=== PATIENT | female | born 1960 | race Caucasian/White ===

== ENCOUNTER → 2024-01-24 15:41 | Outpatient (CLI) | payer OTHER, SELFPAY ==
--- NOTE | ~2024-01-24 | US_ITS ---
EXAMINATION: US pelvic complete w TV DATE: 01/24/2024 16:04 INDICATION: Pelvic and perineal pain. TECHNIQUE: Multiple transabdominal and transvaginal sonographic images of the pelvis were obtained. COMPARISON: None. FINDINGS: TRANSABDOMINAL ULTRASOUND: The uterus measures 5.1 x 3.3 x 3.5 cm. There is no free fluid in the pelvis. TRANSVAGINAL ULTRASOUND: The endometrial complex measures 3 mm in thickness. The ovaries are not visualized. IMPRESSION: 1. Normal uterus. Ovaries not visualized. Reviewed, dictated and finalized at location A. ALLATION AND SERVICE TECHNICIAN
== END ==
PROVIDERS: PCP Obstetrics & Gynecology; Visit Provider Obstetrics & Gynecology
DX: R10.2 Pelvic and perineal pain (principal)
CPT/HCPCS: 76830; 76856

== ENCOUNTER 2024-05-22 08:05 | Outpatient (CLI) | payer OTHER, SELFPAY ==
--- NOTE | ~2024-05-22 | CT_ITS ---
EXAMINATION: CT abdomen wo/w con DATE: 05/22/2024 08:44 INDICATION: Abnormal renal ultrasound TECHNIQUE: Computed tomography (CT) of the abdomen was performed without and with 100 mL Omnipaque-35 0 intravenous contrast. Automated exposure control and iterative reconstruction technique were employ ed. The dose-length product was 1291.16 mGy-cm. COMPARISON: None FINDINGS: Lung bases are clear. Heart size is normal. No pericardial or pleural effusion. Diffuse hepatic steat osis with focal sparing along the gallbladder fossa. Gallbladder, pancreas, bilateral adrenal glands and kidneys are normal. No renal masses identified. 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 No wall thickening or obstruction at the mid/portion of the bowels. Mild lo wer thoracic spondylosis. Schmorl's node along the superior endplate of L5. IMPRESSION: 1. Normal kidneys. No renal masses identified. Recommend correlation with reported prior ultrasound w hich has not been submitted for comparison. 2. Diffuse hepatic steatosis. 3. Status post splenectomy. Reviewed, dictated and finalized at location B. IMPRESSION: 1. Normal kidneys. No renal masses identified. Recommend correlation with repor fior prior ultrasound which has not been submitted for comparison. 2. Diffuse hepatic steatosis. 3. Status post splenectomy.
[2024-05-22 08:34] LABS: Estimated Glomerular Filt Rate > 60
== END 2024-05-22 08:06 ==
DX: R93.429 Abnormal radiologic findings on diagnostic imaging of unspecified kidney (principal); K76.0 Fatty (change of) liver, not elsewhere classified; Z90.81 Acquired absence of spleen
CPT/HCPCS: 74170; Q9967

== ENCOUNTER 2025-02-28 15:12 | Emergency (ER) | payer MEDICARE, SELFPAY ==
--- NOTE | ~2025-02-28 | XR_ITS ---
HISTORY: injury COMPARISON: None TECHNIQUE: 3 views of the right ankle were performed FINDINGS: No acute fracture or dislocation. No significant soft tissue swelling. The ankle mortise is preserved. Bone mineralization is age-appropriate. Calcaneal spur is present. IMPRESSION: Degenerative disease without acute fracture. Reviewed, dictated and finalized at location A.
--- NOTE | ~2025-02-28 | XR_ITS ---
HISTORY: injury COMPARISON: None TECHNIQUE: 3 views of the right foot were performed FINDINGS: No acute fracture or dislocation is appreciated. The base of the fifth metatarsal is intact. Large calcaneal spur is noted. No significant soft tissue swelling is present. IMPRESSION: Degenerative disease, without acute fracture. Reviewed, dictated and finalized at location A.
--- OUTSIDE RECORDS SUMMARY | 2025-02-28 15:15 | XMS_ITS ---
Author Organization Unknown Address [address] [place] [phone] Phone Care Team Providers Care Headstart Teacher Name Role Phone GONZALEZ SUZETTE Attending Unavailable RAMY Leon Primary Unavailable Immunization Immunization Date Status Additional Notes Code Code System pneumococcal polysaccharide PPV23 10/03/2015 Completed 33 CVX Influenza, split virus, quadrivalent, PF 10/03/2015 Completed 150 CVX Influenza, split virus, quadrivalent, PF 09/13/2018 Completed 150 CVX Influenza, split virus, quadrivalent, PF 08/28/2020 Completed 150 CVX Influenza, split virus, quadrivalent, PF 08/06/2021 Completed 150 CVX Influenza, split virus, quadrivalent, PF 09/13/2022 Completed 150 CVX Influenza, MDCK, trivalent, PF 09/25/2024 Completed 153 CVX Influenza, MDCK, quadrivalen t, PF 09/07/2017 Completed 171 CVX Influenza, MDCK, quadrivalen t, PF 08/29/2019 Completed 171 CVX Influenza, MDCK, quadrivalen t, PF 09/11/2023 Completed 171 CVX COVID-19, mRNA, LNP-S, PF, 1 00 mcg/0.5mL dose or 50 mcg/0.25mL dose 12/29/2020 Completed 207 CVX COVID-19, mRNA, LNP-S, PF, 1 00 mcg/0.5mL dose or 50 mcg/0.25mL dose 09/29/2021 Completed 207 CVX Pneumococcal conjugate PCV20 , polysaccharide [id number] conjugate, adjuvant, PF 09/13/2022 Completed 216 CVX COVID-19, mRNA, LNP-S, bivalent, PF, 30 mcg/0.3 mL dose 10/05/2022 Completed 300 CVX RSV, recombinant, protein subunit RSVpreF, adjuvant reconstituted, 0.5 mL, PF 09/11/2023 Completed 303 CV X Results MICROALBUMIN - Collect Date/ Time: 01/11/2024 07:54 [facility] ID: [id number] [address] [place], [place], [id number] LOINC: 50929-7 Test Value Unit Reference Range Code Code System Flag MICROALBUMIN 6.7 mg/L L=0.0 H=16.7 22104-8 LOINC UR CREATININE 132.20 mg/dL L=30.00 H=125 2161-8 LOINC H MA/CR 5.1 mg/gCR CBC W/ DIFF - Collect Date/T giselle: 01/11/2024 07:52 [facility] ID: [id number] [address] [place], [place], [id number] LOINC: 41900-8 Test Value Unit Reference Range Code Code System Flag WBC 5.8 10^3uL L=4.8 H=10.8 RBC 4.09 10^6uL L=4.20 H=5.40 L HEMOGLOBIN 13.6 g/dL L=12.0 H=16.0 718-7 LOINC HEMATOCRIT 40.4 VOL% L=37.0 H=47.0 4544-3 LOINC MCV 98.8 fL L=81.0 H=99.0 MCH 33.3 pg L=27.0 H=32.0 H MCHC 33.7 g/dL L=32.0 H=36.0 PLATELETS 307 10^3uL L=100 H=400 21062-6 LOINC RDW 13.4 % L=11.7 H=15.5 %GRAN L=40.0 H=70.0 39473-5 LOINC %LYMPH L=20.0 H=45.0 736-9 LOINC %MONO L=2.0 H=10.0 68152-2 LOINC %EOS L=0.0 H=6.0 713-8 LOINC %BASO L=0.0 H=3.0 706-2 LOINC #NEUT L=1.9 H=7.6 99700-7 LOINC #LYMPH L=0.9 H=4.9 48941-6 LOINC #MONO L=0.1 H=0.9 73531-8 LOINC #EOS L=0.0 H=0.6 712-0 LOINC #BASO L=0.00 H=0.10 62184-3 LOINC #IM GRANS L=0.0 H=7.0 14299-1 LOINC %IM GRANS L=0.0 H=5.0 98851-8 LOINC %NRB L=0.0 H=0.2 83205-0 LOINC #NRB L=0.000 H=0.012 87558-9 LOINC MANUAL DIFF SEE BELOW A SEG 30 % L=40 H=70 L BANDS 0 % L=0 H=6 LYMPH 57 % L=20 H=45 H MONO 4.0 % L=2.0 H=10.0 EOS 7 % L=0 H=6 713-8 LOINC H BASO 1 % L=0 H=3 IM GRANS 0 % L=0 H=5 METAS 0 % L=0 H=0 MYELOS 0 % L=0 H=0 PROMYELOS 0 % L=0 H=0 BLASTS 0 % L=0 H=0 14119-1 LOINC SIRENA LYMPHS 1.00 % L=0.00 H=5.00 SMUDGE CELLS 0 % L=0 H=0 NRBC 1.0 % L=0.0 H=0.0 H PLTS APPEAR NORMAL NEUT # 1.7 10^3uL L=1.9 H=7.6 L LYMPH # 3.4 10^3uL L=0.9 H=4.9 MONO # 0.2 10^3uL L=0.1 H=0.9 EOS # 0.4 10^3uL L=0.0 H=0.6 712-0 LOINC BASO # 0.1 10^3uL L=0.0 H=0.1 15957-4 LOINC RBC MORPH NORMAL COMPREHENSIVE METABOLIC PANE L - Collect Date/Time: 01/11/2024 07:52 [facility] ID: [id number] [address] [place], [place], [id number] LOINC: 35366-0 Test Value Unit Reference Range Code Code System Flag FASTING NO BUN 13 mg/dL L=7 H=20 3094-0 LOINC CREATININE 1.00 mg/dL L=0.52 H=1.04 2160-0 LOINC GLUCOSE 121 mg/dL L=74 H=106 2345-7 LOINC H SODIUM 141 mmol/L L=132 H=144 2951-2 LOINC POTASSIUM 4.3 mmol/L L=3.5 H=5.1 2823-3 LOINC CHLORIDE 107 mmol/L L=98 H=107 2075-0 LOINC CO2 25.0 mmol/L L=22.0 H=30.0 2028-9 LOINC ANION GAP 13 L=10 H=20 15142-9 LOINC OSMOLALITY 293 mOs/kG L=280 H=296 08668-0 LOINC BUN/CREAT 13.0 3097-3 LOINC CALCIUM 9.5 mg/dL L=8.3 H=10.5 35889-4 LOINC AST 31 U/L L=15 H=46 1920-8 LOINC ALT 32 U/L L=9 H=72 1742-6 LOINC ALKALINE PHOS 56 U/L L=38 H=126 6768-6 LOINC TOTAL BILI 0.5 mg/dL L=0.2 H=1.3 1975-2 LOINC ALBUMIN 4.4 G/dL L=3.5 H=5.0 1751-7 LOINC TOTAL PROTEIN 7.7 g/L L=6.3 H=8.2 2885-2 LOINC A/G RATIO 1.3 84225-3 LOINC AGE 63 03805-2 LOINC eGFR NON-AFR 59 ml/min eGFR AFR AMER 71 ml/min HEMOGLOBIN A1C WITH eAG - Co llect Date/Time: 01/11/2024 07:52 [facility] ID: [id number] [address] [place], [place], [id number] LOINC: 4548-4 Test Value Unit Reference Range Code Code System Flag HGBA1C 6.1 % 4548-4 LOINC eAG 128.4 mg/dL 4548-4 LOINC LIPID PANEL - Collect Date/T giselle: 01/11/2024 07:52 [facility] ID: [id number] [place], [id number] LOINC: 37885-5 Test Value Unit Reference Range Code Code System Flag FASTING NO CHOLESTEROL 212 mg/dL L=0 H=200 2092-3 LOINC H TRIGLYCERIDE 84 mg/dL L=0 H=150 2570-8 LOINC HDL 53 mg/dL L=40 H=60 2084-9 LOINC LDL 128 mg/dL 2088-11 LOINC TSH / REFLEX FT4 - Collect D ate/Time: 01/11/2024 07:52 [facility] ID: [id number] [address] [place], [place], [id number] LOINC: Test Value Unit Reference Range Code Code System Flag TSH 0.850 uIU/L L=0.470 H=4.680 29985-9 LOINC Social History Type Status Start Date End Date Code Code Syst em Smoking History Former smoker 2200126 SNOMED CT Sex Female Medications Medication Start Date End Date Route Frequency Dose Code Code System Medication Instructions Home Meds Docusate 100MG Oral Capsule, Liquid Filled 04/11/2023 Unknown ORAL NEEDED 100 MILLIGRAMS 9860104 RxNorm TAKE 100 MILLIGRAMS ORAL NEEDED Metoprolol Succinate 50MG Oral Tablet, Extended Release 04/11/2023 Unknown ORAL ONCE A DAY 50 MILLIGRAMS 006716 RxNorm TAKE 50 MILLIGRAMS ORAL ONCE A DAY Omeprazole 20 MG Oral Tablet, Delayed Release 04/11/2023 Unknown ORAL ONCE A DAY 20 MG RxNorm TAKE 20 MG ORAL ONCE A DAY Opzelura 1.5% Topical application Cream 04/11/2023 Unknown TOPICAL APPLICATI ON ONCE A DAY 1 unit(s) 6928938 RxNorm 1 EACH TOPICAL APPLICATION ONCE A DAY metFORMIN HCl 500MG Oral Tablet 04/11/2023 Unknown ORAL ONCE A DAY 500 MILLIGRAMS 234045 RxNorm TAKE 500 MILLIGRAMS ORAL ONCE A DAY Hospital Discharge Instructions Should you have any questions prior to discharge, please contact a member of your healthcare team. If you have left the hospital and have any questions, please contact your primary care physician. Reason For Referral No Data Found Allergies and Adverse Reactions Allergy Substance Reaction Severity Start Date Concern Status Co de Code System DOXYCYCLINE Active 3640 RxNorm NABUMETONE Active 14307 RxNorm SUDAFED CONGESTION Active 242447 RxNor m Plan of Treatment Digital Senthil Screen Bilateral (09408) Digital Senthil Screen Bilateral (31432) Colonoscopy 04/11/2023 Kidney & Bladder (41240) 04/08/2024 Digital Senthil Screen Bilateral (00118) Digital Senthil Screen Bilateral (27594) Encounters Encounter Diagnosis Start Date Code Code Sys tem Essential (primary) hypertension 01/11/2024 SNOMED-CT Personal Care Team Section Performer Name Performer Role Active Date Inactive Da te Brian Townsend PCP - Primary care physician 2023-04-04 2023-04-11 ZELDA MCCANN PCP - Primary care physician 2023-03-25 8 2024-04-08 Brian Townsend PCP - Primary care physician 2024-04-08
--- OUTSIDE RECORDS SUMMARY | 2025-02-28 15:15 | XMS_ITS | Clinical Summary ---
Author Organization [facility] Address [address] [place] [address] Care Team Providers Care Scribing Machine Operator Name Role Phone Unavailable Primary Care Provider Unavailabl e Social History Tobacco Use Types Packs/Day Years Used Date Smoking Tobacco: Never Assessed Comments Unknown Sex and Gender Information Value Date Recorded Sex Assigned at Not on file Legal Sex Female 9:27 AM CDT Gender Identity Not on file Sexual Orientation Not on file Last Filed Vital Signs Vital Sign Reading Time Taken Comments Blood Pressure 166/90 06/29/2024 9:45 AM CDT Pulse 87 06/29/2024 9:45 AM CDT Temperature - - Respiratory Rate - - Oxygen Saturation - - Inhaled Oxygen Concentration - - Weight 100.3 kg (221 lb 3.2 oz) 06/29/2024 9:45 AM CDT Height 162.6 cm (5' 4 ) 06/29/2024 9:45 AM CDT Body Mass Index 37.97 06/29/2024 9:45 AM CDT Plan of Treatment Health Maintenance Due Date Last Done Comments Colorectal Cancer Screening Colonoscopy (10 Years) 1959 Hepatitis C 1977 DTaP, Tdap and Td Vaccines ( 1 - Tdap) 1978 Mammogram Screening 1999 Zoster Vaccines (1 of 2) 2009 COVID-19 Vaccine ( - 2023-2 5 season) 2024 10/05/2022, 09/29/2021, 12/29/2020 Dexa Scan (General) 2024 Pneumococcal Vaccine: 65+ Years Completed 09/13/2022, 10/03/2015 Pneumococcal Vaccine: Pediatrics (0 to 5 Years) and At-Risk Patients (6 to 64 Years) Aged Out 09/13/2022, 10/03/2015 No longer eligible based on patient's age to complete this topic RSV Immunization or 60+ Years Completed 09/11/2023 Meningococcal B Vaccine Aged Out No l onger eligible based on patient's age to complete this topic Meningococcal Vaccine Aged Out No carlos alberto dionicio eligible based on patient's age to complete this topic RSV Immunizations Under 20 Months Aged Out No longer eligible b ased on patient's age to complete this topic Insurance [employer] [facility]
--- OUTSIDE RECORDS SUMMARY | 2025-02-28 15:15 | XMS_ITS ---
Author Organization Unknown Address [address] [place] [phone] Phone Care Team Providers Care Quality Control Assessor Name Role Phone CAROLE DILLARD Attending Unavailable LALITA GREWAL Primary Unavailable Immunization Immunization Date Status Additional [...] 207 CVX Pneumococcal conjugate PCV20 , polysaccharide [id number] conjugate, adjuvant, PF 09/13/2022 Completed 216 CVX COVID-19, mRNA, LNP-S, bivalent, PF, 30 mcg/0.3 mL dose 10/05/2022 Completed 300 CVX RSV, recombinant, protein subunit RSVpreF, adjuvant reconstituted, 0.5 mL, PF 09/11/2023 Completed 303 CV X Results CBC W/ DIFF - Collect Date/T giselle: 08/03/2024 08:17 [facility] ID: [id number] [address] [place], [place], [phone] LOINC: 20848-9 Test Value Unit Reference Range Code Code System Flag WBC 6.5 10^3uL L=4.8 H=10.8 RBC 3.93 10^6uL L=4.20 H=5.40 L HEMOGLOBIN 13.0 g/dL L=12.0 H=16.0 718-7 LOINC HEMATOCRIT 39.4 VOL% L=37.0 H=47.0 4544-3 LOINC MCV 100.3 fL L=81.0 H=99.0 H MCH 33.1 pg L=27.0 H=32.0 H MCHC 33.0 g/dL L=32.0 H=36.0 PLATELETS 345 10^3uL L=100 H=400 94549-4 LOINC RDW 14.4 % L=11.7 H=15.5 %GRAN 35.0 % L=40.0 H=70.0 33443-1 LOINC L %LYMPH 45.4 % L=20.0 H=45.0 736-9 LOINC H %MONO 12.7 % L=2.0 H=10.0 81690-9 LOINC H %EOS 5.1 % L=0.0 H=6.0 713-8 LOINC %BASO 1.5 % L=0.0 H=3.0 706-2 LOINC #NEUT 2.3 10^3uL L=1.9 H=7.6 59237-1 LOINC #LYMPH 2.9 10^3uL L=0.9 H=4.9 58584-5 LOINC #MONO 0.8 10^3uL L=0.1 H=0.9 90257-8 LOINC #EOS 0.3 10^3uL L=0.0 H=0.6 712-0 LOINC #BASO 0.10 10^3uL L=0.00 H=0.10 95466-9 LOINC #IM GRANS 0.0 10^3uL L=0.0 H=7.0 68310-6 LOINC %IM GRANS 0.3 % L=0.0 H=5.0 25687-4 LOINC %NRB 0.6 L=0.0 H=0.2 59764-9 LOINC H #NRB 0.040 L=0.000 H=0.012 87568-4 LOINC H MANUAL DIFF NOT INDICATED RBC MORPH NOT INDICATED COMPREHENSIVE METABOLIC PANE L - Collect Date/Time: 08/03/2024 08:17 [facility] ID: [id number] [address] [place], [place], [id number] LOINC: 01116-1 Test Value Unit Reference Range Code Code System Flag FASTING YES BUN 13 mg/dL L=7 H=20 3094-0 LOINC CREATININE 0.90 mg/dL L=0.52 H=1.04 2160-0 LOINC GLUCOSE 135 mg/dL L=74 H=106 2345-7 LOINC H SODIUM 138 mmol/L L=132 H=144 2951-2 LOINC POTASSIUM 4.3 mmol/L L=3.5 H=5.1 2823-3 LOINC CHLORIDE 101 mmol/L L=98 H=107 2075-0 LOINC CO2 27.0 mmol/L L=22.0 H=30.0 2028-9 LOINC ANION GAP 14 L=10 H=20 15382-0 LOINC OSMOLALITY 288 mOs/kG L=280 H=296 53312-8 LOINC BUN/CREAT 14.4 3097-3 LOINC CALCIUM 9.3 mg/dL L=8.3 H=10.5 93759-9 LOINC AST 30 U/L L=15 H=46 1920-8 LOINC ALT 35 U/L L=9 H=72 1742-6 LOINC ALKALINE PHOS 66 U/L L=38 H=126 6768-6 LOINC TOTAL BILI 0.7 mg/dL L=0.2 H=1.3 1975-2 LOINC ALBUMIN 4.2 G/dL L=3.5 H=5.0 1751-7 LOINC TOTAL PROTEIN 7.3 g/L L=6.3 H=8.2 2885-2 LOINC A/G RATIO 1.4 38645-1 LOINC AGE 63 50794-0 LOINC eGFR NON-AFR 67 ml/min eGFR AFR AMER 81 ml/min TSH / REFLEX FT4 - Collect D ate/Time: 08/03/2024 08:17 [facility] ID: [id number] [address] [place] [address], [id number] LOINC: Test Value Unit Reference Range Code Code System Flag TSH 1.290 uIU/L L=0.470 H=4.680 68634-5 LOINC HEMOGLOBIN A1C WITH eAG - Co llect Date/Time: 08/03/2024 08:17 [facility] ID: [id number] [address] [place] [address], [id number] LOINC: 4548-4 Test Value Unit Reference Range Code Code System Flag HGBA1C 6.3 % 4548-4 LOINC eAG 134.1 mg/dL 4548-4 LOINC LIPID PANEL - Collect Date/T giselle: 08/03/2024 08:17 [facility] ID: [id number] [address] [place] [address], [id number] LOINC: 94067-1 Test Value Unit Reference Range Code Code System Flag FASTING YES CHOLESTEROL 168 mg/dL L=0 H=200 2092-3 LOINC TRIGLYCERIDE 77 mg/dL L=0 H=150 2570-8 LOINC HDL 60 mg/dL L=40 H=60 2084-9 LOINC LDL 88 mg/dL 2088- LOINC Social History Type Status Start Date End Date Code Code Syst em Smoking History Former smoker 1624509 SNOMED CT Sex Female Medications Medication Start Date End Date Route Frequency Dose Code Code System Medication Instructions Home Meds Docusate 100MG Oral Capsule, Liquid Filled 04/11/2023 Unknown ORAL NEEDED 100 MILLIGRAMS 9029526 RxNorm TAKE 100 MILLIGRAMS ORAL NEEDED Metoprolol Succinate 50MG Oral Tablet, Extended Release 04/11/2023 Unknown ORAL ONCE A DAY 50 MILLIGRAMS 822658 RxNorm TAKE 50 MILLIGRAMS ORAL ONCE A DAY Omeprazole 20 MG Oral Tablet, Delayed Release 04/11/2023 Unknown ORAL ONCE A DAY 20 MG RxNorm TAKE 20 MG ORAL ONCE A DAY Opzelura 1.5% Topical application Cream 04/11/2023 Unknown TOPICAL APPLICATI ON ONCE A DAY 1 unit(s) 9110012 RxNorm 1 EACH TOPICAL APPLICATION ONCE A DAY metFORMIN HCl 500MG Oral Tablet 04/11/2023 Unknown ORAL ONCE A DAY 500 MILLIGRAMS 547647 RxNorm TAKE 500 MILLIGRAMS ORAL ONCE A [...] System DOXYCYCLINE Active 3640 RxNorm NABUMETONE Active 12786 RxNorm SUDAFED CONGESTION Active RxNor m Plan of Treatment Digital Senthil Screen Bilateral (32821) Digital Senthil Screen Bilateral (50517) Colonoscopy 04/11/2023 Kidney & Bladder (30088) 04/08/2024 Digital Senthil Screen Bilateral (70240) Digital Senthil Screen Bilateral (95361) Personal Care Team Section Performer Name Performer Role Active Date Inactive Da cari Townsend PCP - Primary care physician 2023-04-04 2023-04-11 ZELDA MCCANN PCP - Primary care physician 2023-03-25 8 2024-04-08 Brian Townsend PCP - Primary care physician 2024-04-08
--- OUTSIDE RECORDS SUMMARY | 2025-02-28 15:16 | XMS_ITS ---
Author Organization Unknown Address [address] [place] [phone] Phone Care Team Providers Care Pump Room Operator Name Role Phone CAROLE DILLARD Attending Unavailable [...] 207 CVX Pneumococcal conjugate PCV20 , polysaccharide [id number] conjugate, adjuvant, PF 09/13/2022 Completed 216 CVX COVID-19, mRNA, LNP-S, bivalent, PF, 30 mcg/0.3 mL dose 10/05/2022 Completed 300 CVX RSV, recombinant, protein subunit RSVpreF, adjuvant reconstituted, 0.5 mL, PF 09/11/2023 Completed 303 CV X Results URINALYSIS w/Microscopy/C&S if indicated - Collect Date/Time: 10/07/2024 15:13 [facility] ID: [id number] [place], [place], [id number] LOINC: 14183-4 Test Value Unit Reference Range Code Code System Flag UR SOURCE CLEAN CATCH 15539-8 LOINC COLOR YELLOW YELLOW 5778-6 LOINC CLARITY CLEAR CLEAR 22300-3 LOINC SPEC GRAVITY 1.010 1.000-1.030 5811-5 LOINC PH 6.5 5.0 - 6.5 5803-2 LOINC LEUK EST NEGATIVE NEGATIVE 5799-2 LOINC NITRATE NEGATIVE NEGATIVE PROTEIN NEGATIVE NEGATIVE 5804-0 LOINC GLUCOSE 3+ NEGATIVE 23454-0 LOINC KETONES NEGATIVE NEGATIVE 45249-0 LOINC UROBILINOGEN 1.0 NEGATIVE 5818-0 LOINC BILIRUBIN NEGATIVE NEGATIVE 42607-9 LOINC BLOOD NEGATIVE NEGATIVE 20111-4 LOINC WBC 2-5 0 - 2 89737-3 LOINC RBC 0-2 0 - 2 28627-7 LOINC EPITHELIAL FEW RARE-FEW 92355-3 LOINC BACTERIA FEW NONE SEEN 55878-5 LOINC MUCUS FEW NONE SEEN 8247-9 LOINC YEAST NOT PRESENT NOT PRESENT 73175-0 LOINC CASTS NONE SEEN 80918-6 LOINC CRYSTALS NONE SEEN 93049-4 LOINC CULTURE? NO 8251-1 LOINC DIAGNOSIS N/A URINE PROTEIN W/CREATININE R ATIO - Collect Date/Time: 10/07/2024 15:13 [facility] ID: [id number] [place], [place], [id number] LOINC: 2888-6 Test Value Unit Reference Range Code Code System Flag UR PROTEIN < 5.0 mg/dL L=0.0 H=12.0 2888-6 LOINC UR CREATININE 104.20 mg/dL L=30.00 H=125 2161-8 LOINC UR PROTEIN/CREAT RAT L=0.0 H=200 2828-2 LOINC RENAL FUNCTION PANEL - [facility] ct Date/Time: 10/07/2024 15:13 [facility] ID: [id number] [address] [place], [place], [id number] LOINC: 66672-9 Test Value Unit Reference Range Code Code System Flag FASTING? NO BUN 16 mg/dL L=7 H=20 3094-0 LOINC CREATININE 1.00 mg/dL L=0.52 H=1.04 2160-0 LOINC GLUCOSE 120 mg/dL L=74 H=106 2345-7 LOINC H CALCIUM 9.9 mg/dL L=8.3 H=10.5 94151-8 LOINC SODIUM 141 mmol/L L=132 H=144 2951-2 LOINC POTASSIUM 4.3 mmol/L L=3.5 H=5.1 2823-3 LOINC CHLORIDE 101 mmol/L L=98 H=107 2075-0 LOINC CO2 26.0 mmol/L L=22.0 H=30.0 2028-9 LOINC ANION GAP 18 L=10 H=20 69515-8 LOINC BUN/CREAT 16.0 3097-3 LOINC PHOSPHORUS 4.0 mg/dL L=2.5 H=4.9 2777-1 LOINC ALBUMIN 4.6 G/dL L=3.5 H=5.0 1751-7 LOINC AGE 63 67470-2 LOINC eGFR NON-AFR 59 ml/min eGFR AFR AMER 71 ml/min Social History Type Status Start Date End Date Code Code Syst em Smoking History Former smoker 0303171 SNOMED CT Sex Female Medications Medication Start Date End Date Route Frequency Dose Code Code System Medication Instructions Home Meds Docusate 100MG Oral Capsule, Liquid Filled 04/11/2023 Unknown ORAL NEEDED 100 MILLIGRAMS 1681938 RxNorm TAKE 100 MILLIGRAMS ORAL NEEDED Metoprolol Succinate 50MG Oral Tablet, Extended Release 04/11/2023 Unknown ORAL ONCE A DAY 50 MILLIGRAMS 803190 RxNorm TAKE 50 MILLIGRAMS ORAL ONCE A DAY Omeprazole 20 MG Oral Tablet, Delayed Release 04/11/2023 Unknown ORAL ONCE A DAY 20 MG RxNorm TAKE 20 MG ORAL ONCE A DAY Opzelura 1.5% Topical application Cream 04/11/2023 Unknown TOPICAL APPLICATI ON ONCE A DAY 1 unit(s) 4802813 RxNorm 1 EACH TOPICAL APPLICATION ONCE A DAY metFORMIN HCl 500MG Oral Tablet 04/11/2023 Unknown ORAL ONCE A DAY 500 MILLIGRAMS 482276 RxNorm TAKE 500 MILLIGRAMS ORAL ONCE A [...] System DOXYCYCLINE Active 3640 RxNorm NABUMETONE Active 31776 RxNorm SUDAFED CONGESTION Active 608049 RxNor m Plan of Treatment Digital Senthil Screen Bilateral (36669) Digital Senthil Screen Bilateral (95237) Colonoscopy 04/11/2023 Kidney & Bladder (32332) 04/08/2024 Digital Senthil Screen Bilateral (81172) Digital Senthil Screen Bilateral (14713) Personal Care Team Section Performer Name Performer Role Active Date Inactive Da te Brian Townsend PCP - Primary care physician 2023-04-04 2023-04-11 ZELDA MCCANN PCP - Primary care physician 2023-03-25 8 2024-04-08 Brian Townsend PCP - Primary care physician 2024-04-08
--- OUTSIDE RECORDS SUMMARY | 2025-02-28 15:16 | XMS_ITS ---
Author Organization Unknown Address [address] [place] [address] [phone] Phone Care Team Providers Care Supervisor Component Assembler Name Role Phone GONZALEZ SUZETTE Attending Unavailable [...] 207 CVX Pneumococcal conjugate PCV20 , polysaccharide [id number] conjugate, adjuvant, PF 09/13/2022 Completed 216 CVX COVID-19, mRNA, LNP-S, bivalent, PF, 30 mcg/0.3 mL dose 10/05/2022 Completed 300 CVX RSV, recombinant, protein subunit RSVpreF, adjuvant reconstituted, 0.5 mL, PF 09/11/2023 Completed 303 CV X Results DIG 3D SENTHIL SCREENING BILATER AL - Completed: 03/20/2024 13:36 LOINC: See Scanned Image Attachment for Report Dictated By: Tabby Initials: Trans Date: 03/23/24 10:39 <<REPDIST>> Social History Type Status Start Date End Date Code Code Syst em Smoking History Former smoker 9026995 SNOMED CT Sex Female Medications Medication Start Date End Date Route Frequency Dose Code Code System Medication Instructions Home Meds Docusate 100MG Oral Capsule, Liquid Filled 04/11/2023 Unknown ORAL NEEDED 100 MILLIGRAMS 4851500 RxNorm TAKE 100 MILLIGRAMS ORAL NEEDED Metoprolol Succinate 50MG Oral Tablet, Extended Release 04/11/2023 Unknown ORAL ONCE A DAY 50 MILLIGRAMS 793971 RxNorm TAKE 50 MILLIGRAMS ORAL ONCE A DAY Omeprazole 20 MG Oral Tablet, Delayed Release 04/11/2023 Unknown ORAL ONCE A DAY 20 MG RxNorm TAKE 20 MG ORAL ONCE A DAY Opzelura 1.5% Topical application Cream 04/11/2023 Unknown TOPICAL APPLICATI ON ONCE A DAY 1 unit(s) 5079209 RxNorm 1 EACH TOPICAL APPLICATION ONCE A DAY metFORMIN HCl 500MG Oral Tablet 04/11/2023 Unknown ORAL ONCE A DAY 500 MILLIGRAMS 215938 RxNorm TAKE 500 MILLIGRAMS ORAL ONCE A [...] System DOXYCYCLINE Active 3640 RxNorm NABUMETONE Active 42833 RxNorm SUDAFED CONGESTION Active RxNor m Plan of Treatment Digital Senthil Screen Bilateral (43226) Digital Senthil Screen Bilateral (48392) Colonoscopy 04/11/2023 Kidney & Bladder (68332) 04/08/2024 Digital Senthil Screen Bilateral (17203) Digital Senthil Screen Bilateral (23231) Encounters Encounter Diagnosis Start Date Code Code Sys tem Screening mammography 03/20/2024 [id number] SNOMED -CT Personal Care Team Section Performer Name Performer Role Active Date Inactive Da te Brian Townsend PCP - Primary care physician 2023-04-04 2023-04-11 ZELDA MCCANN PCP - Primary care physician 2023-03-25 8 2024-04-08 Brian Townsend PCP - Primary care physician 2024-04-08 Imaging Narrative Notes [facility] 03/23/2024 10:[address] [address] RADIOLOGY REPORT Patient Number: [id number] Patient Name: MARCIO URBAN Type: O/P MR Number: [id number] : 1960 Age: 63 Sex: F Room #: Admit Date: 03/20/24 Discharge Date 03/20/24 Ordering Physician: CARLOS Romeo Physician: CELSO Dimas Physician: X-Ray Number : [id number] DIG 3D SENTHIL SCREENING BILATERA 34933 COMPLETE:03/20/24 13:36 KSE 77977 (REASONS-DIG 3D SENTHIL SCREENING BILATERAL: SCREENING See Scanned Image Attachment for Report Dictated By: Trans Initials: Trans Date: 03/23/24 10:39 <<REPDIST>>
--- OUTSIDE RECORDS SUMMARY | 2025-02-28 15:16 | XMS_ITS ---
Author Organization Unknown Address [address] [place] [address] [phone] Phone Care Team Providers Care Weed Cooking Operator Name Role Phone CAROLE DILLARD Attending [...] 207 CVX Pneumococcal conjugate PCV20 , polysaccharide [id number] conjugate, adjuvant, PF 09/13/2022 Completed 216 CVX COVID-19, mRNA, LNP-S, bivalent, PF, 30 mcg/0.3 mL dose 10/05/2022 Completed 300 CVX RSV, recombinant, protein subunit RSVpreF, adjuvant reconstituted, 0.5 mL, PF 09/11/2023 Completed 303 CV X Results CBC W/ DIFF - Collect Date/T giselle: 02/08/2025 08:59 [facility] ID: [id number] [address] [place], [place], [phone] LOINC: 07680-2 Test Value Unit Reference Range Code Code System Flag WBC 5.9 10^3uL L=4.8 H=10.8 RBC 4.00 10^6uL L=4.20 H=5.40 L HEMOGLOBIN 13.2 g/dL L=12.0 H=16.0 718-7 LOINC HEMATOCRIT 40.5 VOL% L=37.0 H=47.0 4544-3 LOINC MCV 101.3 fL L=81.0 H=99.0 H MCH 33.0 pg L=27.0 H=32.0 H MCHC 32.6 g/dL L=32.0 H=36.0 PLATELETS 361 10^3uL L=100 H=400 69786-4 LOINC RDW 14.3 % L=11.7 H=15.5 %GRAN 35.5 % L=40.0 H=70.0 17394-6 LOINC L %LYMPH 43.2 % L=20.0 H=45.0 736-9 LOINC %MONO 11.5 % L=2.0 H=10.0 50375-9 LOINC H %EOS 7.9 % L=0.0 H=6.0 713-8 LOINC H %BASO 1.7 % L=0.0 H=3.0 706-2 LOINC #NEUT 2.1 10^3uL L=1.9 H=7.6 58877-9 LOINC #LYMPH 2.6 10^3uL L=0.9 H=4.9 70744-8 LOINC #MONO 0.7 10^3uL L=0.1 H=0.9 32115-0 LOINC #EOS 0.5 10^3uL L=0.0 H=0.6 712-0 LOINC #BASO 0.10 10^3uL L=0.00 H=0.10 21081-0 LOINC #IM GRANS 0.0 10^3uL L=0.0 H=7.0 59433-7 LOINC %IM GRANS 0.2 % L=0.0 H=5.0 94218-4 LOINC %NRB 0.3 L=0.0 H=0.2 95058-0 LOINC H #NRB 0.020 L=0.000 H=0.012 51513-4 LOINC H MANUAL DIFF NOT INDICATED RBC MORPH NOT INDICATED LIPID PANEL - Collect Date/T giselle: 02/08/2025 08:59 [facility] ID: [id number] [address] [place] [address], [phone] LOINC: 64564-5 Test Value Unit Reference Range Code Code System Flag FASTING YES CHOLESTEROL 147 mg/dL L=0 H=200 3-3 LOINC TRIGLYCERIDE 83 mg/dL L=0 H=150 1-8 LOINC HDL 54 mg/dL L=40 H=60 2084-9 LOINC LDL 81 mg/dL 2088- LOINC COMPREHENSIVE METABOLIC PANE L - Collect Date/Time: 02/08/2025 08:59 [facility] ID: [id number] [place] [address], [phone] LOINC: 97485-8 Test Value Unit Reference Range Code Code System Flag FASTING YES BUN 11 mg/dL L=7 H=20 3094-0 LOINC CREATININE 0.80 mg/dL L=0.52 H=1.04 2160-0 LOINC GLUCOSE 103 mg/dL L=74 H=106 2345-7 LOINC SODIUM 142 mmol/L L=132 H=144 2951-2 LOINC POTASSIUM 4.4 mmol/L L=3.5 H=5.1 2823-3 LOINC CHLORIDE 107 mmol/L L=98 H=107 2075-0 LOINC CO2 25.0 mmol/L L=22.0 H=30.0 8-9 LOINC ANION GAP 14 L=10 H=20 51650-7 LOINC OSMOLALITY 294 mOs/kG L=280 H=296 06509-8 LOINC BUN/CREAT 13.8 3097-3 LOINC CALCIUM 9.3 mg/dL L=8.3 H=10.5 55944-8 LOINC AST 26 U/L L=15 H=46 1920-8 LOINC ALT 28 U/L L=9 H=72 1742-6 LOINC ALKALINE PHOS 62 U/L L=38 H=126 6768-6 LOINC TOTAL BILI 0.4 mg/dL L=0.2 H=1.3 1975-2 LOINC ALBUMIN 4.2 G/dL L=3.5 H=5.0 1751-7 LOINC TOTAL PROTEIN 7.3 g/L L=6.3 H=8.2 2885-2 LOINC A/G RATIO 1.4 26388-9 LOINC AGE 64 86590-2 LOINC eGFR NON-AFR 77 ml/min eGFR AFR AMER 93 ml/min TSH / REFLEX FT4 - Collect D ate/Time: 02/08/2025 08:59 [facility] ID: [id number] [address] [place] [address], [phone] LOINC: Test Value Unit Reference Range Code Code System Flag TSH 0.725 uIU/L L=0.470 H=4.680 21918-6 LOINC MICROALBUMIN - Collect Date/ Time: 02/08/2025 08:59 [facility] ID: [id number] [address] [place] [address], [phone] LOINC: 96237-4 Test Value Unit Reference Range Code Code System Flag MICROALBUMIN 12.2 mg/L L=0.0 H=16.7 81690-0 LOINC UR CREATININE 272.10 mg/dL L=30.00 H=125 2161-8 LOINC H MA/CR 4.5 mg/gCR HEMOGLOBIN A1C WITH eAG - Co llect Date/Time: 02/08/2025 08:59 [facility] ID: [id number] [address] [place], [place], [phone] LOINC: 4548-4 Test Value Unit Reference Range Code Code System Flag HGBA1C 5.6 % 4548-4 LOINC eAG 114.0 mg/dL 4548-4 LOINC Social History Type Status Start Date End Date Code Code Syst em Smoking History Former smoker [id number] SNOMED CT Sex Female Medications Medication Start Date End Date Route Frequency Dose Code Code System Medication Instructions Home Meds Docusate 100MG Oral Capsule, Liquid Filled 04/11/2023 Unknown ORAL NEEDED 100 MILLIGRAMS 6902692 RxNorm TAKE 100 MILLIGRAMS ORAL NEEDED Metoprolol Succinate 50MG Oral Tablet, Extended Release 04/11/2023 Unknown ORAL ONCE A DAY 50 MILLIGRAMS 862083 RxNorm TAKE 50 MILLIGRAMS ORAL ONCE A DAY Omeprazole 20 MG Oral Tablet, Delayed Release 04/11/2023 Unknown ORAL ONCE A DAY 20 MG RxNorm TAKE 20 MG ORAL ONCE A DAY Opzelura 1.5% Topical application Cream 04/11/2023 Unknown TOPICAL APPLICATI ON ONCE A DAY 1 unit(s) 7762780 RxNorm 1 EACH TOPICAL APPLICATION ONCE A DAY metFORMIN HCl 500MG Oral Tablet 04/11/2023 Unknown ORAL ONCE A DAY 500 MILLIGRAMS 478662 RxNorm TAKE 500 MILLIGRAMS ORAL ONCE A [...] System DOXYCYCLINE Active 3640 RxNorm NABUMETONE Active 07615 RxNorm SUDAFED CONGESTION Active 728057 RxNor m Plan of Treatment Digital Senthil Screen Bilateral (70888) Digital Senthil Screen Bilateral (06993) Colonoscopy 04/11/2023 US Kidney & Bladder (96369) 04/08/2024 Digital Senthil Screen Bilateral (37371) Digital Senthil Screen Bilateral (94397) Encounters Encounter Diagnosis Start Date Code Code Sys tem Type 2 diabetes mellitus without complications 025 SNOMED-CT Personal Care Team Section Performer Name Performer Role Active Date Inactive Da te Brian Townsend PCP - Primary care physician 2023-04-04 2023-04-11 ZELDA MCCANN PCP - Primary care physician 2023-03-25 8 2024-04-08 Brian Townsend PCP - Primary care physician 2024-04-08
--- OUTSIDE RECORDS SUMMARY | 2025-02-28 15:16 | XMS_ITS ---
Author Organization Unknown Address [address] [place] [address] [phone] Phone Care Team Providers Care Senior Statistician Name Role Phone CAROLE DILLARD Attending Unavailable [...] 207 CVX Pneumococcal conjugate PCV20 , polysaccharide [id number] conjugate, adjuvant, PF 09/13/2022 Completed 216 CVX COVID-19, mRNA, LNP-S, bivalent, PF, 30 mcg/0.3 mL dose 10/05/2022 Completed 300 CVX RSV, recombinant, protein subunit RSVpreF, adjuvant reconstituted, 0.5 mL, PF 09/11/2023 Completed 303 CV X Results US KIDNEY AND BLADDER - Comp leted: 04/08/2024 14:44 LOINC: EXAM DESCRIPTION: US KIDNEY AND BLADDER REASON FOR STUDY: {REASON-US KID/BLADDER DECREASED GFR TECHNIQUE: Ultrasound of the kidneys and urinary bladder was performed with grayscale imaging. COMPARISON: None FINDINGS: RIGHT KIDNEY: The right kidney measures 10.7 x 4.7 x 4.9 cm. There is no hydronephrosis. No discrete mass. Corticomedullary differentiation appears maintained. LEFT KIDNEY: The left kidney measures 11.3 x 4.8 x 5.3 cm. There is normal cortical thickness and echogenicity. Prominent column of Brien versus duplication of the collecting system. There may be mild fullness of the collecting system in the lower pole. URINARY BLADDER: The urinary bladder is normally distended. Both ureteral jets are demonstrated. Bladder volume is 229 mL. OTHER: No other additional findings. IMPRESSION: ? ? Prominent column of Brien versus duplication of the collecting system in the left kidney. Mild fullness of lower pole calices within the left kidney suggested. ? ? No discrete renal mass. No appreciable nephrolithiasis. ? ? Urinary bladder unremarkable THIS IS AN ELECTRONICALLY VERIFIED FINAL REPORT 04/10/2024 11:19 AM - Electronically signed by Kalina Jean Baptiste M.D. TW: TW Report ID: [id number] Reading Location: [place] [address] Social History Type Status Start Date End Date Code Code Syst em Smoking History Former smoker [id number] [facility] Sex Female Medications Medication Start Date End Date Route Frequency Dose Code Code System Medication Instructions Home Meds Docusate 100MG Oral Capsule, Liquid Filled 04/11/2023 Unknown ORAL NEEDED 100 MILLIGRAMS 0542488 RxNorm TAKE 100 MILLIGRAMS ORAL NEEDED Metoprolol Succinate 50MG Oral Tablet, Extended Release 04/11/2023 Unknown ORAL ONCE A DAY 50 MILLIGRAMS 786782 RxNorm TAKE 50 MILLIGRAMS ORAL ONCE A DAY Omeprazole 20 MG Oral Tablet, Delayed Release 04/11/2023 Unknown ORAL ONCE A DAY 20 MG RxNorm TAKE 20 MG ORAL ONCE A DAY Opzelura 1.5% Topical application Cream 04/11/2023 Unknown TOPICAL APPLICATI ON ONCE A DAY 1 unit(s) 8327856 RxNorm 1 EACH TOPICAL APPLICATION ONCE A DAY metFORMIN HCl 500MG Oral Tablet 04/11/2023 Unknown ORAL ONCE A DAY 500 MILLIGRAMS 027924 RxNorm TAKE 500 MILLIGRAMS ORAL ONCE A [...] System DOXYCYCLINE Active 3640 RxNorm NABUMETONE Active 90260 RxNorm SUDAFED CONGESTION Active 421393 RxNor m Plan of Treatment Digital Senthil Screen Bilateral (05116) Digital Senthil Screen Bilateral (82036) Colonoscopy 04/11/2023 US Kidney & Bladder (05436) 04/08/2024 Digital Senthil Screen Bilateral (55348) Digital Senthil Screen Bilateral (09775) Encounters Encounter Diagnosis Start Date Code Code Sys tem Renal function tests abnormal 04/08/2024 [id number] SNOMED-CT Personal Care Team Section Performer Name Performer Role Active Date Inactive Da cari Townsend PCP - Primary care physician 2023-04-04 2023-04-11 ZELDA MCCANN PCP - Primary care physician 2023-03-25 8 2024-04-08 Brian Townsend PCP - Primary care physician 2024-04-08 Imaging Narrative Notes
--- OUTSIDE RECORDS SUMMARY | 2025-02-28 15:16 | XMS_ITS | Data Portability ---
[facility] Address [address] [place] [address] Assessment No assessment recorded. Plan of Treatment Reminders Order Date Submit Date Provider Last Modified By Organization Details Last Modified Time Details Appointments None recorded. Lab None recorded. Referral None recorded. Procedures None recorded. Surgeries None recorded. Imaging None recorded. Medication Orders allergenic extract-ashley e,D.farinae 10,000 unit/mL injection solution 2016 017 [email or web address] Not available 7 00:44:34 Patient TargetsNo targets recorded. Patient Instructions Encounter Date Encounter Id Patient Instructions Last Modified By Organization Details Last Modified Time 06/04/2017 [id number] seasonal allergies: care instructions [email or web address] Not available 06/05/2017 09:08:24 07/02/2017 [id number] allergies to pollen [email or web address] Not available 07/03/2017 13:06:32 Reason for Referral None Reported. Results Created Date Observation Date Name Description Value Unit Range Abnormal Flag Note LastModifiedBy Organization Detail LastModifiedTime Result Notes None recorded. 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, [place], [address] [place] [address] SI 17:59:42 History of multiple allergies 183995079 Active Jose Walton MD Attn: Ana Lilia limon,[address] [facility], [place], [address], [facility] 6 18:09:57 Seasonal allergy 957180870 Active Elizabeth Rothman MA [facility], [facility] 6 16:50:08 Problem Notes None recorded. Procedures Surgical History Date Name Laterality Status Provider Name and Address Organization Details Recorded Time Tubal Ligation completed Yeni Chang MA [facility] 08/04/2015 10:20:56 Dilation and Curettage completed Yeni Chang MA [facility] 08/04/2015 10:20:56 Other completed Yeni Chang MA [facility] 08/04/2015 10:20:56 Imaging Results None recorded. Procedure Notes None recorded. Medical Equipment None Reported. Allergies Allergen ID Allergen Name Allergen Category Reaction Reaction Severity Criticality Documentation Date Start Date Code Code System Note Provider Name and Address Organization Details Recorded Time 91763 nabumeton e medicatio n other Not available Not available 08/04/2015 64156 RxNorm Swell ing Not Available Not Available Not Available 65348 pseudoeph edrine Not available rash Not available Not available 08/04/2015 8896 RxNorm Not Available Not Available Not Available 35560 triamtere ne medicatio n Not available Not available Not available 08/04/2015 25499 RxNorm Not Available Not Available Not Available 74857 Product containin g angiotens in II receptor antagonis t (product) medicatio n rash Not available Not available 08/04/2015 82663 008 SNOMED Not Available Not Available Not Available Medications Name Sig Start Date Stop Date Status Note LastModified by Organization Details LastModified Time amlodipine 5 mg tablet TAKE ONE TABLET BY MOUTH ONCE DAILY 02/19 completed Not Available Not Available Not Available alprazolam 0.25 mg tablet TAKE ONE TABLET BY MOUTH ONCE DAILY NEEDED active Not Available Not Available No t Available amlodipine 10 mg tablet TAKE ONE TABLET BY MOUTH ONCE DAILY 02/19 completed Not Available Not Available Not Available triamcinolo ne acetonide 0.1 % topical ointment active Not Available Not Available Not Available atenolol 50 mg tablet TAKE ONE TABLET BY MOUTH ONCE DAILY active Not Available Not Available No t Available allergenic extract-ashley e,D.farinae 10,000 unit/mL injection solution Take 0.5 mg every month by injection route. 2016 active Not Available Not Available Not Avai lable Vitals None Recorded Social History Question Answer Notes LastModified by Organizat ion Details LastModified Time Tobacco Smoking Status Former Smoker Yeni Chang MA [facility], [place] - [facility] 08/04/2015 10:20:57 How Many Years Have You Smoked Tobacco? 5 [email or web address] Information not available 08/04/2015 Sex: Unknown Functional Status None recorded. Mental Status None recorded. Family History Nothing Reported Notes:HX of HTN, Hyperlipide jaja, Colon Cancer, Dementia and Pancriatic Cancer Medical History Condition Response High Blood Pressure Y Allergies Y Gynecological HistoryNo gynecological history recorded. Obstetrics History GPAL:G 0 P 0 0 0 0 Past Encounters Encounter ID Performer Location Encounter Start Date Encounter Closed Date Diagnosis/Indication Diagnosis SNOMED-CT Code Diagnosis ICD10 Code Diagnosis Note [id number] [facility] [address] [place] [address] 10/20/2014 10:19:52 10/26/2014 10:33:[id number] [facility] [address] [place] [address] 2014 09:45:46 11/23/2014 16:06:[id number] [facility] [address] [place] [address] 12/10/2014 16:16:55 12/15/2014 11:03:56 Seasonal allergy 169896012 [id number] Eder Barone PA-C [facility] [address] [place] [address] 01/10/2015 12:02:24 01/10/2015 14:40:10 [id number] Eder Barone PA-C [facility] [address] [place] [address] 02/07/2015 16:17:47 02/07/2015 16:54:[id number] [facility] [address] [place] [address] 02/28/2015 16:22:58 02/28/2015 16:46:[id number] [facility] [address] [place] [address] 03/30/2015 09:59:23 03/30/2015 13:53:38 [id number] Eder Barone PA-C [facility] [address] [place] [address] 04/27/2015 16:11:19 04/27/2015 16:38:06 [id number] [facility] [address] [place] [address] 05/25/2015 16:11:30 05/26/2015 17:50:02 Seasonal allergy 701070351 [id number] Sheeba Panchal [facility] [address] [place] [address] 06/16/2015 10:21:21 06/16/2015 15:16:30 [id number] Sheeba Panchal [facility] [address] [place] [address] 07/14/2015 16:18:10 07/14/2015 16:56:12 [id number] Barone PA-C [facility] [address] [place] [address] 08/04/2015 10:01:02 08/04/2015 11:00:35 Disorder of vocal cord 29124483 [id number] Sheeba Panchal [facility] [address] [place] [address] 09/01/2015 09:39:57 09/01/2015 10:47:51 Seasonal allergy 691159236 J30.2 [id number]der Barone PA-C [facility] [address] [place] [address] 09/29/2015 09:43:26 09/29/2015 14:29:20 [id number] Eder Barone PA-C [facility] [address] [place] [address] 10/26/2015 09:48:28 10/26/2015 11:04:50 Seasonal allergy 971129293 J30.[id number] [facility] [address] [place] [address] 12/21/2015 09:48:47 12/21/2015 10:25:48 History of multiple allergies 106496318 Z88.9 [id number] MD [facility] [address] [place] [address] 01/19/2016 16:36:12 01/19/2016 17:21:08 History of multiple allergies 953525639 Z88.9 [id number] ROLLY Guevara [address] [place] [address] 02/16/2016 18:03:48 02/16/2016 18:31:38 [id number] Eder Barone PA-C [facility] [address] [place] [facility] [place] [address] 03/20/2016 17:39:19 03/20/2016 18:03:09 [facility] [id number] I10 [id number] Eder Barone PA-C [facility] [address] [place] [address] 05/15/2016 17:55:13 05/16/2016 09:57:42 History of multiple allergies 798780420 Z88.9 [id number] Eder Barone PA-C [facility] [address] [place] [address] 06/12/2016 18:04:35 06/13/2016 09:24:53 [id number] Eder Barone PA-C [facility] [address] [place] [address] 07/10/2016 18:08:06 07/10/2016 18:22:30 Seasonal allergy 444795274 J30.2 [id number] Eder Barone PA-C [facility] [address] [place] [address] 08/07/2016 17:55:58 08/07/2016 18:09:49 Seasonal allergy 986789075 J30.2 [id number] [address] MA [facility] [address] [place] [address] 09/05/2016 17:25:59 09/06/2016 09:18:11 Seasonal allergy 258225499 J30.2 [id number] ROLLY Guevara [facility] [address] [place] [address] 10/02/2016 17:50:06 10/02/2016 18:17:01 History of multiple allergies 596027527 Z88.9 [id number] Elizabeth Rothman MA [facility] [address] [place] [address] 11/27/2016 17:53:33 11/27/2016 18:56:56 History of multiple allergies 921167034 Z88.9 [id number] Kalli Cisneros MA [facility] [address] [place] [address] 12/20/2016 17:36:12 12/24/2016 11:45:22 Seasonal allergy 282587343 J30.2 [id number] [address] MA [facility] [address] [place] [address] 01/16/2017 17:56:36 01/21/2017 16:43:53 Seasonal allergy 165452387 J30.2 [id number] Kalli Cisneros MA [facility] [address] [place] [address] 02/12/2017 17:39:45 02/13/2017 12:27:24 Seasonal allergy 652278610 J30.2 [id number] Elizabeth Rothman MA [facility] [address] [place] [address] 02/19/2017 18:06:48 02/19/2017 19:27:45 Essential hypertension 31637319 I10 Disorder o f vocal cord 18442529 J38.3 [id number] Eder Barone PA-C [facility] [address] [place] [address] 03/12/2017 17:56:35 03/13/2017 14:34:16 Seasonal allergy 455884662 J30.2 [id number] Eder Barone PA-C [facility] [address] [place] [address] 04/09/2017 17:52:16 04/10/2017 16:13:07 Allergic rhinitis 07567430 J30.1 [id number] Elizabeth Rothman MA [facility] [address] [place] [address] 05/07/2017 14:00:35 05/08/2017 10:33:04 History of multiple allergies 722526740 Z88.9 [id number] Eder Barone PA-C [facility] [address] [place] [address] 06/04/2017 17:44:57 06/05/2017 09:09:11 Seasonal allergy 227689143 J30.2 [id number] Elizabeth Rothman [facility] [address] [place] [address] 07/02/2017 17:32:25 07/04/2017 16:50:29 Seasonal allergy 996139521 J30.2 Allergy to mold 48334239 3 Z91.048 History of multiple allergies 873976778 Z88.9 [id number] Kalli Cisneros [facility] [address] [place] [address] 07/30/2017 17:39:19 07/31/2017 16:41:37 Seasonal allergy 665880948 J30.2 [id number] Kalli Cisneros [facility] [address] [place] [address] 08/27/2017 17:36:28 08/28/2017 15:19:28 Seasonal allergy 899724684 J30.2 Health Concerns Section Related Observation LastModified by Organization Detai ls LastModified Time None Recorded Concern Status LastModified by Organization Details LastModified Time None Recorded Advance Directives Directive None Recorded Payers Encounter Date Sequence Insurance Name Policy Number Policy Alicea Covered Member ID Alicea Member ID Guarantor Name 05/07/2017 1 [place] [id number] Jose M Amezcua [id number] Bina Amezcua 06/04/2017 1 [place] [id number] Jose M Amezcua [id number] Bina Amezcua 07/02/2017 1 [place] [id number] Jose M Amezcua [id number] Bina Amezcua 07/30/2017 1 [place] [id number] Jose M Amezcua [id number] Bina Amezcua 08/27/2017 1 [place] [id number] Jose M Amezcua [id number] Bina Amezcua OBGyn Episode No OBEpisode recorded.
--- OUTSIDE RECORDS SUMMARY | 2025-02-28 15:16 | XMS_ITS ---
Author Organization Unknown Address [address] [place] [phone] Phone Care Team Providers Care Balloon Dipper Name Role Phone GONZALEZ SUZETTE Attending Unavailable [...] 207 CVX Pneumococcal conjugate PCV20 , polysaccharide [id number] conjugate, adjuvant, PF 09/13/2022 Completed 216 CVX COVID-19, mRNA, LNP-S, bivalent, PF, 30 mcg/0.3 mL dose 10/05/2022 Completed 300 CVX RSV, recombinant, protein subunit RSVpreF, adjuvant reconstituted, 0.5 mL, PF 09/11/2023 Completed 303 CV X Results COMPREHENSIVE METABOLIC PANE L - Collect Date/Time: 02/24/2024 08:34 [facility] ID: [id number] [address] [place], [place], [phone] LOINC: 59664-5 Test Value Unit Reference Range Code Code System Flag FASTING YES BUN 12 mg/dL L=7 H=20 3094-0 LOINC CREATININE 0.90 mg/dL L=0.52 H=1.04 2160-0 LOINC GLUCOSE 108 mg/dL L=74 H=106 2345-7 LOINC H SODIUM 141 mmol/L L=132 H=144 2951-2 LOINC POTASSIUM 4.3 mmol/L L=3.5 H=5.1 2823-3 LOINC CHLORIDE 104 mmol/L L=98 H=107 2075-0 LOINC CO2 28.0 mmol/L L=22.0 H=30.0 2028-9 LOINC ANION GAP 13 L=10 H=20 50609-4 LOINC OSMOLALITY 292 mOs/kG L=280 H=296 59630-9 LOINC BUN/CREAT 13.3 3097-3 LOINC CALCIUM 9.2 mg/dL L=8.3 H=10.5 85229-7 LOINC AST 24 U/L L=15 H=46 1920-8 LOINC ALT 21 U/L L=9 H=72 1742-6 LOINC ALKALINE PHOS 64 U/L L=38 H=126 6768-6 LOINC TOTAL BILI 0.5 mg/dL L=0.2 H=1.3 1975-2 LOINC ALBUMIN 3.9 G/dL L=3.5 H=5.0 1751-7 LOINC TOTAL PROTEIN 6.9 g/L L=6.3 H=8.2 2885-2 LOINC A/G RATIO 1.3 27312-2 LOINC AGE 63 [address]-1 LOINC eGFR NON-AFR 67 ml/min eGFR AFR AMER 81 ml/min Social History Type Status Start Date End Date Code Code Syst em Smoking History Former smoker 4213080 SNOMED CT Sex Female Medications Medication Start Date End Date Route Frequency Dose Code Code System Medication Instructions Home Meds Docusate 100MG Oral Capsule, Liquid Filled 04/11/2023 Unknown ORAL NEEDED 100 MILLIGRAMS 4852347 RxNorm TAKE 100 MILLIGRAMS ORAL NEEDED Metoprolol Succinate 50MG Oral Tablet, Extended Release 04/11/2023 Unknown ORAL ONCE A DAY 50 MILLIGRAMS 185113 RxNorm TAKE 50 MILLIGRAMS ORAL ONCE A DAY Omeprazole 20 MG Oral Tablet, Delayed Release 04/11/2023 Unknown ORAL ONCE A DAY 20 MG RxNorm TAKE 20 MG ORAL ONCE A DAY Opzelura 1.5% Topical application Cream 04/11/2023 Unknown TOPICAL APPLICATI ON ONCE A DAY 1 unit(s) 0721423 RxNorm 1 EACH TOPICAL APPLICATION ONCE A DAY metFORMIN HCl 500MG Oral Tablet 04/11/2023 Unknown ORAL ONCE A DAY 500 MILLIGRAMS 059103 RxNorm TAKE 500 MILLIGRAMS ORAL ONCE A [...] System DOXYCYCLINE Active 3640 RxNorm NABUMETONE Active 19044 RxNorm SUDAFED CONGESTION Active 882065 RxNor m Plan of Treatment Digital Senthil Screen Bilateral (79214) Digital Senthil Screen Bilateral (20349) Colonoscopy 04/11/2023 Kidney & Bladder (26380) 04/08/2024 Digital Senthil Screen Bilateral (36937) Digital Senthil Screen Bilateral (58408) Personal Care Team Section Performer Name Performer Role Active Date Inactive Da te Brian Townsend PCP - Primary care physician 2023-04-04 2023-04-11 ZELDA MCCANN PCP - Primary care physician 2023-03-25 8 2024-04-08 Brian Townsend PCP - Primary care physician 2024-04-08
[2025-02-28 15:17] VITALS: BP 149/93; PULSE 87; RESP 20; TEMP 37.1; O2SAT 99
--- OUTSIDE RECORDS SUMMARY | 2025-02-28 15:19 | XMS_ITS ---
Author Organization Unknown Address [address] [place] [phone] Phone Care Team Providers Care Conveyor Technician Name Role Phone GONZALEZ SUZETTE Attending Unavailable [...] 207 CVX Pneumococcal conjugate PCV20 , polysaccharide [id number] conjugate, adjuvant, PF 09/13/2022 Completed 216 CVX COVID-19, mRNA, LNP-S, bivalent, PF, 30 mcg/0.3 mL dose 10/05/2022 Completed 300 CVX RSV, recombinant, protein subunit RSVpreF, adjuvant reconstituted, 0.5 mL, PF 09/11/2023 Completed 303 CV X Results COMPREHENSIVE METABOLIC PANE L - Collect Date/Time: 02/24/2024 08:34 [facility] ID: [id number] [address] [place], [place], [id number] LOINC: 18558-7 Test Value Unit Reference Range Code Code [...] 2028-9 LOINC ANION GAP 13 L=10 H=20 70933-3 LOINC OSMOLALITY 292 mOs/kG L=280 H=296 85273-3 LOINC BUN/CREAT 13.3 3097-3 LOINC CALCIUM 9.2 mg/dL L=8.3 H=10.5 28743-7 LOINC AST 24 U/L L=15 H=46 1920-8 LOINC ALT 21 U/L L=9 H=72 1742-6 LOINC ALKALINE PHOS 64 U/L L=38 H=126 6768-6 LOINC TOTAL BILI 0.5 mg/dL L=0.2 H=1.3 1975-2 LOINC ALBUMIN 3.9 G/dL L=3.5 H=5.0 1751-7 LOINC TOTAL PROTEIN 6.9 g/L L=6.3 H=8.2 2885-2 LOINC A/G RATIO 1.3 84114-8 LOINC AGE 63 67736-3 LOINC eGFR NON-AFR 67 ml/min eGFR AFR AMER 81 ml/min Social History Type Status Start Date End Date Code Code Syst em Smoking History Former smoker 2225328 SNOMED CT Sex Female Medications Medication Start Date End Date Route Frequency Dose Code Code System Medication Instructions Home Meds Docusate 100MG Oral Capsule, Liquid Filled 04/11/2023 Unknown ORAL NEEDED 100 MILLIGRAMS 2045032 RxNorm TAKE 100 MILLIGRAMS ORAL NEEDED Metoprolol Succinate 50MG Oral Tablet, Extended Release 04/11/2023 Unknown ORAL ONCE A DAY 50 MILLIGRAMS 425159 RxNorm TAKE 50 MILLIGRAMS ORAL ONCE A DAY Omeprazole 20 MG Oral Tablet, Delayed Release 04/11/2023 Unknown ORAL ONCE A DAY 20 MG RxNorm TAKE 20 MG ORAL ONCE A DAY Opzelura 1.5% Topical application Cream 04/11/2023 Unknown TOPICAL APPLICATI ON ONCE A DAY 1 unit(s) 9859745 RxNorm 1 EACH TOPICAL APPLICATION ONCE A DAY metFORMIN HCl 500MG Oral Tablet 04/11/2023 Unknown ORAL ONCE A DAY 500 MILLIGRAMS 495881 RxNorm TAKE 500 MILLIGRAMS ORAL ONCE A [...] System DOXYCYCLINE Active 3640 RxNorm NABUMETONE Active 03361 RxNorm SUDAFED CONGESTION Active RxNor m Plan of Treatment Digital Senthil Screen Bilateral (54622) Digital Senthil Screen Bilateral (75579) Colonoscopy 04/11/2023 Kidney & Bladder (93833) 04/08/2024 Digital Senthil Screen Bilateral (98412) Digital Senthil Screen Bilateral (54377) Personal Care Team Section Performer Name Performer Role Active Date Inactive Da te Brian Townsend PCP - Primary care physician 2023-04-04 2023-04-11 ZELDA MCCANN PCP - Primary care physician 2023-03-25 8 2024-04-08 Brian Townsend PCP - Primary care physician 2024-04-08
--- OUTSIDE RECORDS SUMMARY | 2025-02-28 15:19 | XMS_ITS ---
Author Organization Unknown Address [address] [place] [phone] Phone Care Team Providers Care Hand Buffing Wheel Former Name Role Phone CAROLE DILLARD Attending Unavailable [...] 207 CVX Pneumococcal conjugate PCV20 , polysaccharide [id number] conjugate, adjuvant, PF 09/13/2022 Completed 216 CVX COVID-19, mRNA, LNP-S, bivalent, PF, 30 mcg/0.3 mL dose 10/05/2022 Completed 300 CVX RSV, recombinant, protein subunit RSVpreF, adjuvant reconstituted, 0.5 mL, PF 09/11/2023 Completed 303 CV X Results CBC W/ DIFF - Collect Date/T giselle: 08/03/2024 08:17 [facility] ID: [id number] [address] [place], [place], [id number] LOINC: 19837-6 Test Value Unit Reference Range Code Code System Flag WBC 6.5 10^3uL L=4.8 H=10.8 RBC 3.93 10^6uL L=4.20 H=5.40 L HEMOGLOBIN 13.0 g/dL L=12.0 H=16.0 718-7 LOINC HEMATOCRIT 39.4 VOL% L=37.0 H=47.0 4544-3 LOINC MCV 100.3 fL L=81.0 H=99.0 H MCH 33.1 pg L=27.0 H=32.0 H MCHC 33.0 g/dL L=32.0 H=36.0 PLATELETS 345 10^3uL L=100 H=400 79832-1 LOINC RDW 14.4 % L=11.7 H=15.5 %GRAN 35.0 % L=40.0 H=70.0 61092-9 LOINC L %LYMPH 45.4 % L=20.0 H=45.0 736-9 LOINC H %MONO 12.7 % L=2.0 H=10.0 33966-2 LOINC H %EOS 5.1 % L=0.0 H=6.0 713-8 LOINC %BASO 1.5 % L=0.0 H=3.0 706-2 LOINC #NEUT 2.3 10^3uL L=1.9 H=7.6 05974-9 LOINC #LYMPH 2.9 10^3uL L=0.9 H=4.9 71129-6 LOINC #MONO 0.8 10^3uL L=0.1 H=0.9 66517-3 LOINC #EOS 0.3 10^3uL L=0.0 H=0.6 712-0 LOINC #BASO 0.10 10^3uL L=0.00 H=0.10 46357-3 LOINC #IM GRANS 0.0 10^3uL L=0.0 H=7.0 39351-4 LOINC %IM GRANS 0.3 % L=0.0 H=5.0 19849-4 LOINC %NRB 0.6 L=0.0 H=0.2 14460-0 LOINC H #NRB 0.040 L=0.000 H=0.012 81705-3 LOINC H MANUAL DIFF NOT INDICATED RBC MORPH NOT INDICATED COMPREHENSIVE METABOLIC PANE L - Collect Date/Time: 08/03/2024 08:17 [facility] ID: [id number] [address] [place], [place], [id number] LOINC: 32326-8 Test Value Unit Reference Range Code Code [...] 2028-9 LOINC ANION GAP 14 L=10 H=20 79845-0 LOINC OSMOLALITY 288 mOs/kG L=280 H=296 42992-0 LOINC BUN/CREAT 14.4 3097-3 LOINC CALCIUM 9.3 mg/dL L=8.3 H=10.5 07256-7 LOINC AST 30 U/L L=15 H=46 1920-8 LOINC ALT 35 U/L L=9 H=72 1742-6 LOINC ALKALINE PHOS 66 U/L L=38 H=126 6768-6 LOINC TOTAL BILI 0.7 mg/dL L=0.2 H=1.3 1975-2 LOINC ALBUMIN 4.2 G/dL L=3.5 H=5.0 1751-7 LOINC TOTAL PROTEIN 7.3 g/L L=6.3 H=8.2 2885-2 LOINC A/G RATIO 1.4 62212-0 LOINC AGE 63 36478-9 LOINC eGFR NON-AFR 67 ml/min eGFR AFR AMER 81 ml/min TSH / REFLEX FT4 - Collect D ate/Time: 08/03/2024 08:17 [facility] ID: [id number] [address] [place] [address], [id number] LOINC: Test Value Unit Reference Range Code Code System Flag TSH 1.290 uIU/L L=0.470 H=4.680 41484-7 LOINC HEMOGLOBIN A1C WITH eAG - Co llect Date/Time: 08/03/2024 08:17 [facility] ID: [id number] [address] [place] [address], [phone] LOINC: 4548-4 Test Value Unit Reference Range Code Code System Flag HGBA1C 6.3 % 4548-4 LOINC eAG 134.1 mg/dL 4548-4 LOINC LIPID PANEL - Collect Date/T giselle: 08/03/2024 08:17 [facility] ID: [id number] [address] [place] [address], [id number] LOINC: 35654-5 Test Value Unit Reference Range Code Code System Flag FASTING YES CHOLESTEROL 168 mg/dL L=0 H=200 3-3 LOINC TRIGLYCERIDE 77 mg/dL L=0 H=150 1-8 LOINC HDL 60 mg/dL L=40 H=60 2084-9 LOINC LDL 88 mg/dL 2088- LOINC Social History Type Status Start Date End Date Code Code Syst em Smoking History Former smoker 8006797 SNOMED CT Sex Female Medications Medication Start Date End Date Route Frequency Dose Code Code System Medication Instructions Home Meds Docusate 100MG Oral Capsule, Liquid Filled 04/11/2023 Unknown ORAL NEEDED 100 MILLIGRAMS 1357220 RxNorm TAKE 100 MILLIGRAMS ORAL NEEDED Metoprolol Succinate 50MG Oral Tablet, Extended Release 04/11/2023 Unknown ORAL ONCE A DAY 50 MILLIGRAMS 956890 RxNorm TAKE 50 MILLIGRAMS ORAL ONCE A DAY Omeprazole 20 MG Oral Tablet, Delayed Release 04/11/2023 Unknown ORAL ONCE A DAY 20 MG RxNorm TAKE 20 MG ORAL ONCE A DAY Opzelura 1.5% Topical application Cream 04/11/2023 Unknown TOPICAL APPLICATI ON ONCE A DAY 1 unit(s) 8089161 RxNorm 1 EACH TOPICAL APPLICATION ONCE A DAY metFORMIN HCl 500MG Oral Tablet 04/11/2023 Unknown ORAL ONCE A DAY 500 MILLIGRAMS 043388 RxNorm TAKE 500 MILLIGRAMS ORAL ONCE A [...] System DOXYCYCLINE Active 3640 RxNorm NABUMETONE Active 74612 RxNorm SUDAFED CONGESTION Active RxNor m Plan of Treatment Digital Senthil Screen Bilateral (38506) Digital Senthil Screen Bilateral (53375) Colonoscopy 04/11/2023 Kidney & Bladder (99679) 04/08/2024 Digital Senthil Screen Bilateral (86436) Digital Senthil Screen Bilateral (71392) Personal Care Team Section Performer Name Performer Role Active Date Inactive Da te Brian Townsend PCP - Primary care physician 2023-04-04 2023-04-11 ZELDA MCCANN PCP - Primary care physician 2023-03-25 8 2024-04-08 Brian Townsend PCP - Primary care physician 2024-04-08
--- OUTSIDE RECORDS SUMMARY | 2025-02-28 15:19 | XMS_ITS ---
Author Organization Unknown Address [address] [place] [phone] Phone Care Team Providers Care Rubber Mixer Name Role Phone GONZALEZ SUZETTE Attending Unavailable [...] 207 CVX Pneumococcal conjugate PCV20 , polysaccharide [id number] conjugate, adjuvant, PF 09/13/2022 Completed 216 CVX COVID-19, mRNA, LNP-S, bivalent, PF, 30 mcg/0.3 mL dose 10/05/2022 Completed 300 CVX RSV, recombinant, protein subunit RSVpreF, adjuvant reconstituted, 0.5 mL, PF 09/11/2023 Completed 303 CV X Results MICROALBUMIN - Collect Date/ Time: 01/11/2024 07:54 [facility] ID: [id number] [address] [place], [place], [address] LOINC: 55429-5 Test Value Unit Reference Range Code Code System Flag MICROALBUMIN 6.7 mg/L L=0.0 H=16.7 47015-8 LOINC UR CREATININE 132.20 mg/dL L=30.00 H=125 2161-8 LOINC H MA/CR 5.1 mg/gCR CBC W/ DIFF - Collect Date/T giselle: 01/11/2024 07:52 [facility] ID: [id number] [address] [place], [place], [address] LOINC: 99781-4 Test Value Unit Reference Range Code Code System Flag WBC 5.8 10^3uL L=4.8 H=10.8 RBC 4.09 10^6uL L=4.20 H=5.40 L HEMOGLOBIN 13.6 g/dL L=12.0 H=16.0 718-7 LOINC HEMATOCRIT 40.4 VOL% L=37.0 H=47.0 4544-3 LOINC MCV 98.8 fL L=81.0 H=99.0 MCH 33.3 pg L=27.0 H=32.0 H MCHC 33.7 g/dL L=32.0 H=36.0 PLATELETS 307 10^3uL L=100 H=400 75847-7 LOINC RDW 13.4 % L=11.7 H=15.5 %GRAN L=40.0 H=70.0 30084-4 LOINC %LYMPH L=20.0 H=45.0 736-9 LOINC %MONO L=2.0 H=10.0 03022-2 LOINC %EOS L=0.0 H=6.0 713-8 LOINC %BASO L=0.0 H=3.0 706-2 LOINC #NEUT L=1.9 H=7.6 25737-5 LOINC #LYMPH L=0.9 H=4.9 86781-5 LOINC #MONO L=0.1 H=0.9 66026-1 LOINC #EOS L=0.0 H=0.6 712-0 LOINC #BASO L=0.00 H=0.10 15192-5 LOINC #IM GRANS L=0.0 H=7.0 32645-7 LOINC %IM GRANS L=0.0 H=5.0 63601-8 LOINC %NRB L=0.0 H=0.2 81195-9 LOINC #NRB L=0.000 H=0.012 26962-9 LOINC MANUAL DIFF SEE BELOW A SEG [...] L=0 H=0 BLASTS 0 % L=0 H=0 57726-2 LOINC SIRENA LYMPHS 1.00 % L=0.00 H=5.00 SMUDGE CELLS 0 % L=0 H=0 NRBC 1.0 % L=0.0 H=0.0 H PLTS APPEAR NORMAL NEUT # 1.7 10^3uL L=1.9 H=7.6 L LYMPH # 3.4 10^3uL L=0.9 H=4.9 MONO # 0.2 10^3uL L=0.1 H=0.9 EOS # 0.4 10^3uL L=0.0 H=0.6 712-0 LOINC BASO # 0.1 10^3uL L=0.0 H=0.1 68242-4 LOINC RBC MORPH NORMAL COMPREHENSIVE METABOLIC PANE L - Collect Date/Time: 01/11/2024 07:52 [facility] ID: [id number] [place], [place], [address] LOINC: 95856-2 Test Value Unit Reference Range Code Code [...] 2028-9 LOINC ANION GAP 13 L=10 H=20 42095-5 LOINC OSMOLALITY 293 mOs/kG L=280 H=296 15785-5 LOINC BUN/CREAT 13.0 3097-3 LOINC CALCIUM 9.5 mg/dL L=8.3 H=10.5 80007-0 LOINC AST 31 U/L L=15 H=46 1920-8 LOINC ALT 32 U/L L=9 H=72 1742-6 LOINC ALKALINE PHOS 56 U/L L=38 H=126 6768-6 LOINC TOTAL BILI 0.5 mg/dL L=0.2 H=1.3 1975-2 LOINC ALBUMIN 4.4 G/dL L=3.5 H=5.0 1751-7 LOINC TOTAL PROTEIN 7.7 g/L L=6.3 H=8.2 2885-2 LOINC A/G RATIO 1.3 15598-6 LOINC AGE 63 55488-0 LOINC eGFR NON-AFR 59 ml/min eGFR AFR AMER 71 ml/min HEMOGLOBIN A1C WITH eAG - Co llect Date/Time: 01/11/2024 07:52 [facility] ID: [id number] [address] [place], [place], [address] LOINC: 4548-4 Test Value Unit Reference Range Code Code System Flag HGBA1C 6.1 % 4548-4 LOINC eAG 128.4 mg/dL 4548-4 LOINC LIPID PANEL - Collect Date/T giselle: 01/11/2024 07:52 [facility] ID: [id number] [address] [place], [place], [address] LOINC: 96739-1 Test Value Unit Reference Range Code Code System Flag FASTING NO CHOLESTEROL 212 mg/dL L=0 H=200 2092-3 LOINC H TRIGLYCERIDE 84 mg/dL L=0 H=150 2570-8 LOINC HDL 53 mg/dL L=40 H=60 2084-9 LOINC LDL 128 mg/dL 2088-11 LOINC TSH / REFLEX FT4 - Collect D ate/Time: 01/11/2024 07:52 [facility] ID: [id number] [address] [place], [place], [address] LOINC: Test Value Unit Reference Range Code Code System Flag TSH 0.850 uIU/L L=0.470 H=4.680 68881-7 LOINC Social History Type Status Start Date End Date Code Code Syst em Smoking History Former smoker 4259584 SNOMED CT Sex Female Medications Medication Start Date End Date Route Frequency Dose Code Code System Medication Instructions Home Meds Docusate 100MG Oral Capsule, Liquid Filled 04/11/2023 Unknown ORAL NEEDED 100 MILLIGRAMS 1572025 RxNorm TAKE 100 MILLIGRAMS ORAL NEEDED Metoprolol Succinate 50MG Oral Tablet, Extended Release 04/11/2023 Unknown ORAL ONCE A DAY 50 MILLIGRAMS 722226 RxNorm TAKE 50 MILLIGRAMS ORAL ONCE A DAY Omeprazole 20 MG Oral Tablet, Delayed Release 04/11/2023 Unknown ORAL ONCE A DAY 20 MG RxNorm TAKE 20 MG ORAL ONCE A DAY Opzelura 1.5% Topical application Cream 04/11/2023 Unknown TOPICAL APPLICATI ON ONCE A DAY 1 unit(s) 0854620 RxNorm 1 EACH TOPICAL APPLICATION ONCE A DAY metFORMIN HCl 500MG Oral Tablet 04/11/2023 Unknown ORAL ONCE A DAY 500 MILLIGRAMS 573289 RxNorm TAKE 500 MILLIGRAMS ORAL ONCE A [...] System DOXYCYCLINE Active 3640 RxNorm NABUMETONE Active 29207 RxNorm SUDAFED CONGESTION Active 912024 RxNor m Plan of Treatment Digital Senthil Screen Bilateral (48113) Digital Senthil Screen Bilateral (77613) Colonoscopy 04/11/2023 Kidney & Bladder (63182) 04/08/2024 Digital Senthil Screen Bilateral (06607) Digital Senthil Screen Bilateral (04312) Encounters Encounter Diagnosis Start Date Code Code Sys tem Essential (primary) hypertension 01/11/2024 SNOMED-CT Personal Care Team Section Performer Name Performer Role Active Date Inactive Da te Brian Townsend PCP - Primary care physician 2023-04-04 2023-04-11 ZELDA MCCANN PCP - Primary care physician 2023-03-25 8 2024-04-08 Brian Townsend PCP - Primary care physician 2024-04-08
--- OUTSIDE RECORDS SUMMARY | 2025-02-28 15:19 | XMS_ITS ---
Author Organization Unknown Address [address] [place] [phone] Phone Care Team Providers Care Workday Director Name Role Phone GONZALEZ SUZETTE Attending Unavailable [...] 207 CVX Pneumococcal conjugate PCV20 , polysaccharide [id number] conjugate, adjuvant, PF 09/13/2022 Completed 216 CVX [...] Code Syst em Smoking History Former smoker 7880530 SNOMED CT Sex Female Medications Medication Start Date End Date Route Frequency Dose Code Code System Medication Instructions Home Meds Docusate 100MG Oral Capsule, Liquid Filled 04/11/2023 Unknown ORAL NEEDED 100 MILLIGRAMS 2361386 RxNorm TAKE 100 MILLIGRAMS ORAL NEEDED Metoprolol Succinate 50MG Oral Tablet, Extended Release 04/11/2023 Unknown ORAL ONCE A DAY 50 MILLIGRAMS 913667 RxNorm TAKE 50 MILLIGRAMS ORAL ONCE A DAY Omeprazole 20 MG Oral Tablet, Delayed Release 04/11/2023 Unknown ORAL ONCE A DAY 20 MG RxNorm TAKE 20 MG ORAL ONCE A DAY Opzelura 1.5% Topical application Cream 04/11/2023 Unknown TOPICAL APPLICATI ON ONCE A DAY 1 unit(s) 9811451 RxNorm 1 EACH TOPICAL APPLICATION ONCE A DAY metFORMIN HCl 500MG Oral Tablet 04/11/2023 Unknown ORAL ONCE A DAY 500 MILLIGRAMS 746754 RxNorm TAKE 500 MILLIGRAMS ORAL ONCE A [...] System DOXYCYCLINE Active 3640 RxNorm NABUMETONE Active 38678 RxNorm SUDAFED CONGESTION Active RxNor m Plan of Treatment Digital Senthil Screen Bilateral (72458) Digital Senthil Screen Bilateral (43261) Colonoscopy 04/11/2023 Kidney & Bladder (59446) 04/08/2024 Digital Senthil Screen Bilateral (60145) Digital Senthil Screen Bilateral (80695) Encounters Encounter Diagnosis Start Date Code Code Sys tem Screening mammography 03/20/2024 [id number] SNOMED -CT Personal Care Team Section Performer Name Performer Role Active Date Inactive Da te Brian Townsend PCP - Primary care physician 2023-04-04 2023-04-11 ZELDA MCCANN PCP - Primary care physician 2023-03-25 8 2024-04-08 Brian Townsend PCP - Primary care physician 2024-04-08 Imaging Narrative Notes [facility] 03/23/2024 10:[address] [address] RADIOLOGY REPORT Patient Number: [id number] Patient Name: MARCIO URBAN Type: O/P MR Number: [id number] : 1960 Age: 63 Sex: F Room #: Admit Date: 03/20/24 Discharge Date 03/20/24 Ordering Physician: CARLOS Romeo Physician: CELSO Dimas Physician: X-Ray Number : [id number] DIG 3D SENTHIL SCREENING BILATERA 62596 COMPLETE:03/20/24 13:36 KSE 44130 (REASONS-DIG 3D SENTHIL SCREENING BILATERAL: SCREENING See Scanned Image Attachment for Report Dictated By: Trans Initials: Trans Date: 03/23/24 10:39 <<REPDIST>>
--- OUTSIDE RECORDS SUMMARY | 2025-02-28 15:19 | XMS_ITS ---
Author Organization Unknown Address [address] [place] [phone] Phone Care Team Providers Care Concessions Manager Name Role Phone CAROLE DILLARD Attending Unavailable [...] 207 CVX Pneumococcal conjugate PCV20 , polysaccharide [id number] conjugate, adjuvant, PF 09/13/2022 Completed 216 CVX COVID-19, mRNA, LNP-S, bivalent, PF, 30 mcg/0.3 mL dose 10/05/2022 Completed 300 CVX RSV, recombinant, protein subunit RSVpreF, adjuvant reconstituted, 0.5 mL, PF 09/11/2023 Completed 303 CV X Results CBC W/ DIFF - Collect Date/T giselle: 02/08/2025 08:59 [facility] [id number] [address] [place], [place], [address] LOINC: 05226-8 Test Value Unit Reference Range Code Code System Flag WBC 5.9 10^3uL L=4.8 H=10.8 RBC 4.00 10^6uL L=4.20 H=5.40 L HEMOGLOBIN 13.2 g/dL L=12.0 H=16.0 718-7 LOINC HEMATOCRIT 40.5 VOL% L=37.0 H=47.0 4544-3 LOINC MCV 101.3 fL L=81.0 H=99.0 H MCH 33.0 pg L=27.0 H=32.0 H MCHC 32.6 g/dL L=32.0 H=36.0 PLATELETS 361 10^3uL L=100 H=400 73304-7 LOINC RDW 14.3 % L=11.7 H=15.5 %GRAN 35.5 % L=40.0 H=70.0 16811-5 LOINC L %LYMPH 43.2 % L=20.0 H=45.0 736-9 LOINC %MONO 11.5 % L=2.0 H=10.0 66022-8 LOINC H %EOS 7.9 % L=0.0 H=6.0 713-8 LOINC H %BASO 1.7 % L=0.0 H=3.0 706-2 LOINC #NEUT 2.1 10^3uL L=1.9 H=7.6 52076-0 LOINC #LYMPH 2.6 10^3uL L=0.9 H=4.9 20037-8 LOINC #MONO 0.7 10^3uL L=0.1 H=0.9 81499-8 LOINC #EOS 0.5 10^3uL L=0.0 H=0.6 712-0 LOINC #BASO 0.10 10^3uL L=0.00 H=0.10 84901-2 LOINC #IM GRANS 0.0 10^3uL L=0.0 H=7.0 64366-0 LOINC %IM GRANS 0.2 % L=0.0 H=5.0 12742-0 LOINC %NRB 0.3 L=0.0 H=0.2 92563-2 LOINC H #NRB 0.020 L=0.000 H=0.012 47904-7 LOINC H MANUAL DIFF NOT INDICATED RBC MORPH NOT INDICATED LIPID PANEL - Collect Date/T giselle: 02/08/2025 08:59 [facility] [id number] [place], [place], [address] LOINC: 44428-3 Test Value Unit Reference Range Code Code System Flag FASTING YES CHOLESTEROL 147 mg/dL L=0 H=200 3-3 LOINC TRIGLYCERIDE 83 mg/dL L=0 H=150 1-8 LOINC HDL 54 mg/dL L=40 H=60 2084-9 LOINC LDL 81 mg/dL 2088-1 LOINC COMPREHENSIVE METABOLIC PANE L - Collect Date/Time: 02/08/2025 08:59 [facility] [id number] [place], [place], [address] LOINC: 10570-8 Test Value Unit Reference Range Code Code [...] 8-9 LOINC ANION GAP 14 L=10 H=20 10307-7 LOINC OSMOLALITY 294 mOs/kG L=280 H=296 68070-8 LOINC BUN/CREAT 13.8 3097-3 LOINC CALCIUM 9.3 mg/dL L=8.3 H=10.5 71181-1 LOINC AST 26 U/L L=15 H=46 1920-8 LOINC ALT 28 U/L L=9 H=72 1742-6 LOINC ALKALINE PHOS 62 U/L L=38 H=126 6768-6 LOINC TOTAL BILI 0.4 mg/dL L=0.2 H=1.3 1975-2 LOINC ALBUMIN 4.2 G/dL L=3.5 H=5.0 1751-7 LOINC TOTAL PROTEIN 7.3 g/L L=6.3 H=8.2 2885-2 LOINC A/G RATIO 1.4 18803-2 LOINC AGE 64 26775-8 LOINC eGFR NON-AFR 77 ml/min eGFR AFR AMER 93 ml/min TSH / REFLEX FT4 - Collect D ate/Time: 02/08/2025 08:59 [facility] [id number] [place] [address], [phone] LOINC: Test Value Unit Reference Range Code Code System Flag TSH 0.725 uIU/L L=0.470 H=4.680 02421-6 LOINC MICROALBUMIN - Collect Date/ Time: 02/08/2025 08:59 [facility] [id number] [address] [place] [address], [address] LOINC: 98333-4 Test Value Unit Reference Range Code Code System Flag MICROALBUMIN 12.2 mg/L L=0.0 H=16.7 13868-7 LOINC UR CREATININE 272.10 mg/dL L=30.00 H=125 2161-8 LOINC H MA/CR 4.5 mg/gCR HEMOGLOBIN A1C WITH eAG - Co llect Date/Time: 02/08/2025 08:59 [facility] [id number] [address] [place], [place], [address] LOINC: 4548-4 Test Value Unit Reference Range Code Code System Flag HGBA1C 5.6 % 4548-4 LOINC eAG 114.0 mg/dL 4548-4 LOINC Social History Type Status Start Date End Date Code Code Syst em Smoking History Former smoker [id number] SNOMED CT Sex Female Medications Medication Start Date End Date Route Frequency Dose Code Code System Medication Instructions Home Meds Docusate 100MG Oral Capsule, Liquid Filled 04/11/2023 Unknown ORAL NEEDED 100 MILLIGRAMS 5706736 RxNorm TAKE 100 MILLIGRAMS ORAL NEEDED Metoprolol Succinate 50MG Oral Tablet, Extended Release 04/11/2023 Unknown ORAL ONCE A DAY 50 MILLIGRAMS 826071 RxNorm TAKE 50 MILLIGRAMS ORAL ONCE A DAY Omeprazole 20 MG Oral Tablet, Delayed Release 04/11/2023 Unknown ORAL ONCE A DAY 20 MG RxNorm TAKE 20 MG ORAL ONCE A DAY Opzelura 1.5% Topical application Cream 04/11/2023 Unknown TOPICAL APPLICATI ON ONCE A DAY 1 unit(s) 7531791 RxNorm 1 EACH TOPICAL APPLICATION ONCE A DAY metFORMIN HCl 500MG Oral Tablet 04/11/2023 Unknown ORAL ONCE A DAY 500 MILLIGRAMS 771427 RxNorm TAKE 500 MILLIGRAMS ORAL ONCE A [...] System DOXYCYCLINE Active 3640 RxNorm NABUMETONE Active 31768 RxNorm SUDAFED CONGESTION Active 219273 RxNor m Plan of Treatment Digital Senthil Screen Bilateral (56571) Digital Senthil Screen Bilateral (52785) Colonoscopy 04/11/2023 Kidney & Bladder (18334) 04/08/2024 Digital Senthil Screen Bilateral (66952) Digital Senthil Screen Bilateral (22482) Encounters Encounter Diagnosis Start Date Code Code [...]
--- OUTSIDE RECORDS SUMMARY | 2025-02-28 15:20 | XMS_ITS ---
Author Organization Unknown Address [address] [place] [phone] Phone Care Team Providers Care Band Booker Name Role Phone CAROLE DILLARD Attending Unavailable [...] 207 CVX Pneumococcal conjugate PCV20 , polysaccharide [id number] conjugate, adjuvant, PF 09/13/2022 Completed 216 CVX [...] findings. IMPRESSION: ? ? Prominent column of Brine versus duplication of the collecting system in the left kidney. Mild fullness of lower pole calices within the left kidney suggested. ? ? No discrete renal mass. No appreciable nephrolithiasis. ? ? Urinary bladder unremarkable THIS IS AN ELECTRONICALLY VERIFIED FINAL REPORT 04/10/2024 11:19 AM - Electronically signed by Kalina Jean Baptiste M.D. TW: TW Report ID: [id number] Reading Location: [place] [address] Social History Type Status Start Date End Date Code Code Syst em Smoking History [facility] Sex Female Medications Medication Start Date End Date Route Frequency Dose Code Code System Medication Instructions Home Meds Docusate 100MG Oral Capsule, Liquid Filled 04/11/2023 Unknown ORAL NEEDED 100 MILLIGRAMS 0077191 RxNorm TAKE 100 MILLIGRAMS ORAL NEEDED Metoprolol Succinate 50MG Oral Tablet, Extended Release 04/11/2023 Unknown ORAL ONCE A DAY 50 MILLIGRAMS 035168 RxNorm TAKE 50 MILLIGRAMS ORAL ONCE A DAY Omeprazole 20 MG Oral Tablet, Delayed Release 04/11/2023 Unknown ORAL ONCE A DAY 20 MG RxNorm TAKE 20 MG ORAL ONCE A DAY Opzelura 1.5% Topical application Cream 04/11/2023 Unknown TOPICAL APPLICATI ON ONCE A DAY 1 unit(s) 1225752 RxNorm 1 EACH TOPICAL APPLICATION ONCE A DAY metFORMIN HCl 500MG Oral Tablet 04/11/2023 Unknown ORAL ONCE A DAY 500 MILLIGRAMS 941460 RxNorm TAKE 500 MILLIGRAMS ORAL ONCE A [...] System DOXYCYCLINE Active 3640 RxNorm NABUMETONE Active 09835 RxNorm SUDAFED CONGESTION Active 680384 RxNor m Plan of Treatment Digital Esnthil Screen Bilateral (18203) Digital Senthil Screen Bilateral (05795) Colonoscopy 04/11/2023 US Kidney & Bladder (78235) 04/08/2024 Digital Senthil Screen Bilateral (05895) Digital Senthil Screen Bilateral (85231) Encounters Encounter Diagnosis Start Date Code Code Sys tem Renal function tests abnormal 04/08/2024 [id number] SNOMED-CT Personal Care Team Section Performer Name Performer Role Active Date Inactive Da cari Townsend PCP - Primary care physician 2023-04-04 2023-04-11 ZELDA MCCANN PCP - Primary care physician 2023-03-25 8 2024-04-08 Brian Townsend PCP - Primary care physician 2024-04-08 Imaging Narrative Notes
--- OUTSIDE RECORDS SUMMARY | 2025-02-28 15:20 | XMS_ITS ---
Author Organization Unknown Address [address] [place] [phone] Phone Care Team Providers Care Cinder Pitman Name Role Phone CAROLE DILLARD Attending Unavailable [...] 207 CVX Pneumococcal conjugate PCV20 , polysaccharide [id number] conjugate, adjuvant, PF 09/13/2022 Completed 216 CVX COVID-19, mRNA, LNP-S, bivalent, PF, 30 mcg/0.3 mL dose 10/05/2022 Completed 300 CVX RSV, recombinant, protein subunit RSVpreF, adjuvant reconstituted, 0.5 mL, PF 09/11/2023 Completed 303 CV X Results URINALYSIS w/Microscopy/C&S if indicated - Collect Date/Time: 10/07/2024 15:13 [facility] ID: [id number] [address] [place], [place], [address] LOINC: 00701-6 Test Value Unit Reference Range Code Code System Flag UR SOURCE CLEAN CATCH 13226-7 LOINC COLOR YELLOW YELLOW 5778-6 LOINC CLARITY CLEAR CLEAR 42289-3 LOINC SPEC GRAVITY 1.010 1.000-1.030 5811-5 LOINC PH 6.5 5.0 - 6.5 5803-2 LOINC LEUK EST NEGATIVE NEGATIVE 5799-2 LOINC NITRATE NEGATIVE NEGATIVE PROTEIN NEGATIVE NEGATIVE 5804-0 LOINC GLUCOSE 3+ NEGATIVE 60204-5 LOINC KETONES NEGATIVE NEGATIVE 01053-9 LOINC UROBILINOGEN 1.0 NEGATIVE 5818-0 LOINC BILIRUBIN NEGATIVE NEGATIVE 07939-3 LOINC BLOOD NEGATIVE NEGATIVE 71492-6 LOINC WBC 2-5 0 - 2 59172-4 LOINC RBC 0-2 0 - 2 46487-7 LOINC EPITHELIAL FEW RARE-FEW 32591-7 LOINC BACTERIA FEW NONE SEEN 40177-4 LOINC MUCUS FEW NONE SEEN 8247-9 LOINC YEAST NOT PRESENT NOT PRESENT 08612-4 LOINC CASTS NONE SEEN 17007-7 LOINC CRYSTALS NONE SEEN 32067-6 LOINC CULTURE? NO 8251-1 LOINC DIAGNOSIS N/A URINE PROTEIN W/CREATININE R ATIO - Collect Date/Time: 10/07/2024 15:13 [facility] ID: [id number] [place], [place], [address] LOINC: 2888-6 Test Value Unit Reference Range Code Code System Flag UR PROTEIN < 5.0 mg/dL L=0.0 H=12.0 2888-6 LOINC UR CREATININE 104.20 mg/dL L=30.00 H=125 2161-8 LOINC UR PROTEIN/CREAT RAT L=0.0 H=200 2828-2 [facility] RENAL FUNCTION PANEL - [facility] ct Date/Time: 10/07/2024 15:13 [facility] ID: [id number] [place], [place], [address] LOINC: 67670-2 Test Value Unit Reference Range Code Code System Flag FASTING? NO BUN 16 mg/dL L=7 H=20 3094-0 LOINC CREATININE 1.00 mg/dL L=0.52 H=1.04 2160-0 LOINC GLUCOSE 120 mg/dL L=74 H=106 2345-7 LOINC H CALCIUM 9.9 mg/dL L=8.3 H=10.5 38717-8 LOINC SODIUM 141 mmol/L L=132 H=144 2951-2 LOINC POTASSIUM 4.3 mmol/L L=3.5 H=5.1 2823-3 LOINC CHLORIDE 101 mmol/L L=98 H=107 2075-0 LOINC CO2 26.0 mmol/L L=22.0 H=30.0 2028-9 LOINC ANION GAP 18 L=10 H=20 49075-7 LOINC BUN/CREAT 16.0 3097-3 LOINC PHOSPHORUS 4.0 mg/dL L=2.5 H=4.9 2777-1 LOINC ALBUMIN 4.6 G/dL L=3.5 H=5.0 1751-7 LOINC AGE 63 12625-1 LOINC eGFR NON-AFR 59 ml/min eGFR AFR AMER 71 ml/min Social History Type Status Start Date End Date Code Code Syst em Smoking History Former [id number] Sex Female Medications Medication Start Date End Date Route Frequency Dose Code Code System Medication Instructions Home Meds Docusate 100MG Oral Capsule, Liquid Filled 04/11/2023 Unknown ORAL NEEDED 100 MILLIGRAMS 1177746 RxNorm TAKE 100 MILLIGRAMS ORAL NEEDED Metoprolol Succinate 50MG Oral Tablet, Extended Release 04/11/2023 Unknown ORAL ONCE A DAY 50 MILLIGRAMS 601958 RxNorm TAKE 50 MILLIGRAMS ORAL ONCE A DAY Omeprazole 20 MG Oral Tablet, Delayed Release 04/11/2023 Unknown ORAL ONCE A DAY 20 MG RxNorm TAKE 20 MG ORAL ONCE A DAY Opzelura 1.5% Topical application Cream 04/11/2023 Unknown TOPICAL APPLICATI ON ONCE A DAY 1 unit(s) 7555299 RxNorm 1 EACH TOPICAL APPLICATION ONCE A DAY metFORMIN HCl 500MG Oral Tablet 04/11/2023 Unknown ORAL ONCE A DAY 500 MILLIGRAMS 328559 RxNorm TAKE 500 MILLIGRAMS ORAL ONCE A [...] System DOXYCYCLINE Active 3640 RxNorm NABUMETONE Active 51197 RxNorm SUDAFED CONGESTION Active 899422 RxNor m Plan of Treatment Digital Senthil Screen Bilateral (20187) Digital Senthil Screen Bilateral (10661) Colonoscopy 04/11/2023 Kidney & Bladder (55117) 04/08/2024 Digital Senthil Screen Bilateral (60911) Digital Senthil Screen Bilateral (42869) Personal Care Team Section Performer Name Performer Role Active Date Inactive Da te Brian Townsend PCP - Primary care physician 2023-04-04 2023-04-11 ZELDA MCCANN PCP - Primary care physician 2023-03-25 8 2024-04-08 Brian Townsend PCP - Primary care physician 2024-04-08
--- NOTE | 2025-02-28 15:26 | ED.LOWEXIN ---
HPI - Extremity Injury (Lower) General Chief Complaint: Extremity Injury, Lower Stated Complaint: Right Foot/Ankle Injury Time Seen by Provider: 02/28/25 15:26 Source: patient, family, RN notes reviewed and old records reviewed Mode of arrival: ambulatory (placed in wheelchair on arrival to clinic) Limitations: no limitations History of Present Illness HPI Narrative: 64 year old female who presents to [facility] care accompanied by spouse with complaints of hitting her right ankle and anterior frontal foot on the the bed post today when she was rearranging her closet, Patient has pain to the lateral aspect of her right ankle with some swelling present with tenderness on palpation to lateral right ankle and to the anterior frontal foot. Patient has not taken any OTC pain medication for her discomfort. Ice applied on arrival to room and elevated MD complaint: ankle injury and foot injury Onset (ago): day(s) (today this morning) Injury: Right: ankle and foot Type of Injury: blunt Place: home Severity scale (1-10): 9 Exacerbating factors: movement Treatments prior to arrival: other (none) Related Data Home Medications ?Medication ?Instructions ?Recorded ?Confirmed ?Last Taken ?Type alprazolam 0.25 mg tablet (Xanax) 0.25 mg PO DAILY 07/13/20 04/15/24 Unknown History pravastatin 10 mg tablet 10 mg PO DAILY 04/15/24 04/15/24 Unknown History losartan 25 mg tablet mg 02/28/25 Unknown History semaglutide 0.25 mg or 0.5 mg (2 mg subcut 02/28/25 Unknown History mg/3 mL) subcutaneous pen injector (Ozempic) Allergies Allergy/AdvReac Type Severity Reaction Status Date / Time lisinopril Allergy Unknown Unknown Verified 02/28/25 15:25 nabumetone Allergy Unknown Unknown Verified 02/28/25 15:25 pseudoephedrine Allergy Unknown Unknown Verified 02/28/25 15:25 triamterene Allergy Unknown Unknown Verified 02/28/25 15:25 ANGIOTENSINS Allergy Mild RASH Uncoded 04/15/24 14:40 Review of Systems Review of Systems: CONSTITUTIONAL: Denies fever, chills, or sweats. EYES: Denies visual changes, redness, or discharge. ENT: Denies rhinorrhea, congestion, sore throat, or otalgia. CARDIOVASCULAR: Denies chest pain, palpitations, or edema. RESPIRATORY: Denies cough or dyspnea. GASTROINTESTINAL: Denies abdominal pain, nausea, vomiting, or diarrhea. GENITOURINARY: Denies dysuria or hematuria. SKIN: Denies rash or itching. MUSCULOSKELETAL: Denies back pain,positive for right ankle and anterior frontal foot joint pain, or myalgia. NEUROLOGIC: Denies headache, numbness, or weakness. PSYCHIATRIC: Positive for history of anxiety or depression. All systems reviewed & are unremarkable except as noted in HPI and below PMFSH Past Medical History Medical History Vocal cord dysfunction Diabetes Elevated cholesterol Anxiety Screening mammogram for breast cancer Post-menopausal Hypertension History of vaginal delivery x 2 Surgical History Surgical History History of tubal ligation History of dilation and curettage History of splenectomy for ITP Family History Family History Mother Family history of blood dyscrasia Hypertension Carcinoma of colon, Onset Age: 73 Patient's mother is Father Hypertension Family history of elevated blood lipids Family history of pancreatic cancer, Onset Age: 84 Patient's father is Grandparent Carcinoma of colon Social History Social History Smoking status: Former smoker Second hand tobacco smoke exposure: No Smoking end date: 11/25/82 Alcohol intake: current Substance use: never Substance use type: does not use Lack of Transportation: No Lack of Food: Never True Current Housing: I Have Housing Concerned About Future Housing: No Difficulty Paying Gas/Electric Bills: No Difficulty Paying for Meds: No Currently Unemployed: No Education: High School Diploma/GED Difficulty w/ Childcare or Family Care: No Comments At time of signature, agree with nursing past medical, surgical, social and family history. There is no relevant family history pertinent to the presenting complaint Exam Narrative: GENERAL: Well-appearing, well-nourished, and in some acute distress related to pain. HEAD: Normocephalic, atraumatic. EYES: PERRLA and EOMI. ENT: Nares clear, no rhinorrhea or epistaxis. Mucous membranes moist. NECK: Supple.no lymphadenopathy CHEST: Clear to auscultation. No respiratory distress.SAO2 99% on room air HEART: Regular rate and rhythm. No murmur heard. Normal peripheral pulses. ABDOMEN: Soft, nontender, nondistended, normal active bowel sounds. EXTREMITIES: Normal range of motion. No edema.Exception noted to swelling and pain to lateral right ankle and to anterior frontal foot, pedal pulse strong right foot, reports no tingling or numbness, pain with any attempted movement of foot or ankle. SKIN: Warm, dry, no rash. NEURO: No focal deficits. Alert and oriented x3. Course Course Emergency Course: Patient is aware of diagnosis, understands and agrees to treatment plan.? Anticipatory guidance given.? Patient agrees to follow-up as directed and is aware of reasons to seek care at the emergency department. Portions of this record may have been created with voice recognition software Level of Care: Express Care Visit Vital Signs Vital signs: Vital Signs Temperature 37.1 C 02/28/25 15:17 Pulse Rate 87 02/28/25 15:17 Respiratory Rate 20 02/28/25 15:17 Blood Pressure 149/93 H 02/28/25 15:17 Pulse Oximetry 99 02/28/25 15:17 Oxygen Delivery Room Air 02/28/25 15:17 Temperature 37.1 C 02/28/25 15:17 Pulse Rate 87 02/28/25 15:17 Respiratory Rate 20 02/28/25 15:17 Blood Pressure 149/93 H 02/28/25 15:17 Pulse Oximetry 99 02/28/25 15:17 Oxygen Delivery Room Air 02/28/25 15:17 Reviewed MDM - Extremity Injury (Lower) Differential Diagnosis Differential diagnosis: Likely ankle sprain and strain, ankle fracture and other (foot fracture, contusion right lateral ankle) Medical Records Attestation: I reviewed the patient's medical records. Imaging Data Attestation: I personally reviewed and interpreted this imaging study as follows: My impression: foot and ankle no fracture noted degenerative disease of right ankle and foot Radiologist's impression: Express [facility] [place] [address] [place] [address] XRay Report Signed Patient: Bina Amezcua : 1960 MR#: [id number] Age: 64 Acct:[id number] Loc: [facility] ADM Date: 02/28/25Attending Dr: Ordering Physician: Janice Carrizales [employer] STAMPING MACHINE OPERATOR Date of Service: 02/28/25 Procedure(s): XR ankle RT min 3V Accession Number(s): [id number] cc: Janice Carrizales [employer]VELOPE STAMPING MACHINE OPERATOR~ HISTORY: injury COMPARISON: None TECHNIQUE: 3 views of the right ankle were performed FINDINGS: No acute fracture or dislocation. No significant soft tissue swelling. The ankle mortise is preserved. Bone mineralization is age-appropriate. Calcaneal spur is present. IMPRESSION: Degenerative disease without acute fracture. Reviewed, dictated and finalized at location A. Please be advised this is a medical document. It is intended for dlry-bs-lqyu communication. It is written in medical language and may contain unfamiliar abbreviations or verbiage. Medical documents are intended to carry relevant information, facts as evident, and the clinical opinion of the practitioner at the time of the encounter. This report may have been done utilizing a voice recognition system. Attempts have been made to correct errors. However, there may be uncorrected grammatical, spelling, and recognition errors present. The file time of this note does not necessarily represent the time of service. Dictated By: Janki Monge MD 02/28/25 1550 Signed By: <Electronically signed by Janki Monge MD in OV> [place] [address] XRay Report Signed Patient: Bina Amezcua : 1960 MR#: [id number] Age: 64 Acct:[id number] Loc: ADM Date: 02/28/25Attending Dr: Ordering Physician: Janice Carrizales [employer]VEL[employer] STAMPING MACHINE OPERATOR Date of Service: 02/28/25 Procedure(s): XR foot RT min 3V Accession Number(s): [id number] cc: Janice CarrizalesAlejandra GONZALEZ~ HISTORY: injury COMPARISON: None TECHNIQUE: 3 views of the right foot were performed FINDINGS: No acute fracture or dislocation is appreciated. The base of the fifth metatarsal is intact. Large calcaneal spur is noted. No significant soft tissue swelling is present. IMPRESSION: Degenerative disease, without acute fracture. Reviewed, dictated and finalized at location A. Please be advised this is a medical document. It is intended for pihp-vb-msua communication. It is written in medical language and may contain unfamiliar abbreviations or verbiage. Medical documents are intended to carry relevant information, facts as evident, and the clinical opinion of the practitioner at the time of the encounter. This report may have been done utilizing a voice recognition system. Attempts have been made to correct errors. However, there may be uncorrected grammatical, spelling, and recognition errors present. The file time of this note does not necessarily represent the time of service. Dictated By: Janki Monge MD 02/28/25 1556 Signed By: <Electronically signed by Janki Monge MD in [place]> Critical Care Time Critical Care Time Critical Care Time: No Discharge Plan Discharge Clinical Impression: Contusion of ankle, right Qualifiers: Encounter type: initial encounter Qualified Code(s): S90.01XA - Contusion of right ankle, initial encounter Contusion of foot, right Qualifiers: Encounter type: initial encounter Qualified Code(s): S90.31XA - Contusion of right foot, initial encounter Patient Disposition: Home Condition: Stable Instructions: Antibiotic Form, Contusion in Adults (ED) Additional Instructions: Elastic wrap or orthopedic splint as directed for comfort for the next 5-7 days Crutches if needed, patient reports she has some at home Tylenol for pain Follow-up with orthopedic surgeon or podiatry if any further concerns Follow-up with PCP if further problems or concerns Ice to the area 20-30 minutes 4-6 times a day Elevate above heart If your symptoms persist, change or worsen significantly before you can contact your personal physician then please, without delay, go to the emergency department for further evaluation. Follow-up with PCP in 7-10 days or sooner if needed Follow up with PCP soon in regards to your blood pressure which is elevated above threshold for referral. Blood pressure above 120/80 may indicate pre-hypertension. 143/93 Patient Language: Mongolian Prescriptions: No Action losartan 25 mg tablet Ozempic 0.25 mg or 0.5 mg (2 mg/3 mL) pen injector SUBCUT alprazolam [Xanax] 0.25 mg tablet 0.25 mg PO DAILY pravastatin 10 mg tablet 10 mg PO DAILY Follow-up/Referrals: PHYSICIAN NOT ON STAFF,NONSTAFF [Primary Care Provider] - Stand Alone Forms: Work/School Release IP Time of Disposition: 16:13 Quality Margy Coma Scale Eyes: Open Verbal: Oriented and Alert Motor: Follows Commands Margy Coma Total Score: 15
== END 2025-02-28 16:24 | disposition home or self-care (01) ==
PROVIDERS: Emergency Provider Registered Nurse
DX: S90.01XA Contusion of right ankle, initial encounter (principal); S90.31XA Contusion of right foot, initial encounter; W22.03XA Walked into furniture, initial encounter; E11.9 Type 2 diabetes mellitus without complications; E78.00 Pure hypercholesterolemia, unspecified; I10 Essential (primary) hypertension; F41.9 Anxiety disorder, unspecified
CPT/HCPCS: 73610; 73630; 99213; G0463

== ENCOUNTER 2025-08-19 09:48 | Outpatient (CLI) | payer MEDICARE, SELFPAY ==
--- NOTE | ~2025-08-19 | DEXA_ITS ---
Bone Density Report Name: SERGEI BUCKLEY Age: 64 Sex: Female Ethnicity: White Date of : 1960 Indication: postmenopausal; screening for osteoporosis; Referring Provider: ROMAIN QUINN Study: Bone densitometry was performed. Exam Date: August 19, 2025 Accession number: [id number] Bone Density: Region BMD T-score Z-score Classification AP Spine(L1-L4) 0.828 -2.0 -0.2 Osteopenia Femoral Neck (Left) 0.634 -1.9 -0.4 Osteopenia Total Hip (Left) 0.867 -0.6 0.6 Normal Femoral Neck (Right) 0.586 -2.4 -0.8 Osteopenia Total Hip (Right) 0.788 -1.3 0.0 Osteopenia Total Hip Mean 0.827 -1.0 0.3 Normal World Health Organization criteria for BMD impression classify patients as: Normal (T-score at or above -1.0), Osteopenia (T-score between -1.0 and -2.5), or Osteoporosis (T-score at or below -2.5). 10-year Fracture Risk(1): Major Osteoporotic Fracture 12% Hip Fracture 2.1% Reported Risk Factors: [place] (), Neck BMD=0.586, BMI=33.9 (1) FRAX(R) Version 3.08. Fracture probability calculated for an untreated patient. Fracture probability may be lower if the patient has received treatment. Clinical Information Provided by Patient: Patient maximum height was 64 Menopause Age: 49 No regular weight bearing exercise Does not regularly consume dairy products Drinks caffeinated beverages Onset of menses at age 13 Number of children 2 Impression: The patient has low bone mass, based on the Right Femoral Neck T-score. The patient has an estimated ten-year risk of hip fracture of 2.1% and an estimated ten-year risk of major fracture of 12%, based on the WHO FRAX algorithm. Discussion: BONE DENSITY IS LOW AT ONE OR MORE SKELETAL SITES. This patient's lowest T-score is low at one or more skeletal sites. It meets the World Health Organization's (WHO) criteria for ?low bone mass? (T-score between -1.0 and -2.5). The patient's 10-year risk of fracture as calculated by FRAX is less than the threshold where pharmacological therapy is recommended by the National Osteoporosis Foundation (NOF). However, all treatment decisions require clinical judgment and consideration of individual patient factors, including patient preferences, comorbidities, previous drug use, risk factors not captured in the FRAX model (e.g., frailty, falls, vitamin D deficiency, increased bone turnover, interval significant decline in bone density) and possible under or overestimation of fracture risk by FRAX. The patient should follow a healthful lifestyle (good nutrition with adequate calcium and vitamin D, and appropriate weight-bearing exercise). Follow-Up: Consider repeating this study in 2 to 3 years to reassess this patient's status, or sooner if there is some new clinical indication. Reported by: NORA on 08/19/2025 10:07:00 AM. Reviewed, dictated and finalized at location A.
== END 2025-08-19 09:49 | disposition home or self-care (01) ==
LOC: MICIMG 09:48
PROVIDERS: PCP Nurse Practitioner Obstetrics & Gynecology; Visit Provider Nurse Practitioner Obstetrics & Gynecology
DX: Z78.0 Asymptomatic menopausal state (principal); M85.88 Other specified disorders of bone density and structure, other site; M85.852 Other specified disorders of bone density and structure, left thigh; M85.851 Other specified disorders of bone density and structure, right thigh
CPT/HCPCS: 77080